=== PATIENT | male | born 1965 | race Caucasian/White ===

== ENCOUNTER 2021-12-27 12:39 | Inpatient (IN) ==
[2021-12-27 13:24] LABS: Basophils # (auto) 0.02 K/uL (0-0.2); Basophils % (auto) 0.1 %; Eosinophils # (auto) 0.01 K/uL (0-0.50); Eosinophils % (auto) 0.1 %; Hematocrit (blood only) 32.6 % (40.1-51.0); Hemoglobin 11.5 g/dl (14.0-18.0); Immature Granulocytes % (auto) 0.7 %; Lymphocytes # (auto) 0.68 K/uL (1.2-3.4); Lymphocytes % (auto) 4.5 %; Mean Corpuscular Hemoglobin 30.3 pg (25.0-34.0); Mean Corpuscular Hgb Conc 35.3 g/dL (32.0-36.0); Mean Platelet Volume 9.4 fL (9.4-12.4); Monocytes # (auto) 1.72 K/uL (0.24-0.82); Monocytes % (auto) 11.4 %; Neutrophils # (auto) 12.51 K/uL (1.4-6.5); Neutrophils % (auto) 83.2 %; Platelet Count 471 K/uL (130-400); RDW Coefficient of Variation 14.7 % (11.5-14.5); Red Blood Count 3.79 M/uL (4.63-6.08); White Blood Count 15.04 K/ul (4.8-10.8)
[2021-12-27 13:26] LABS: Appearance Urine Turbid (Clear); Bacteria Urine Automated 1+ (Negative); Bilirubin Urine Negative (Negative); Blood Urine 2+ (Negative); Color Urine Yellow; Glucose Urine UA Negative (Negative); Ketones Urine Negative (Negative); Leukocyte Esterase Urine 3+ (Negative); Nitrite Urine Negative (Negative); Protein Urine 2+ (Negative); Specific Gravity Urine 1.014 (1.000-1.030); Urobilinogen Urine Negative (Negative); WBC Urine Automated >30 /hpf (0-5)
--- NOTE | 2021-12-27 13:32 | XRay Report ---
XR chest 1V portable HISTORY: Sepsis COMPARISON: None. FINDINGS: The cardiac silhouette is borderline enlarged. The lungs are clear. No pleural effusions. N o pneumothorax. No evidence for pulmonary edema. IMPRESSION: Borderline cardiomegaly. Otherwise, no acute process within the chest. ACT 112: Negative or not required by law. Electronically signed by: Yovani Webster M.D. 12/27/2021 1:31 PM
[2021-12-27 13:34] LABS: RBC Urine Automated 0-4 /hpf (0-4)
[2021-12-27 13:34] LABS: INR 1.4 (0.9-1.1); Partial Thromboplastin Ratio 1.2; Partial Thromboplastin Time 31.9 Seconds (21.0-31.0); Prothrombin Time 14.5 Seconds (9.0-12.0)
[2021-12-27] MEDS ORDERED: ACETAMINOPHEN 1,000 MG/100 ML VIAL IV STA (13:36)
[2021-12-27] MEDS ORDERED: KETOROLAC TROMETHAMINE 15 MG/ML VIAL IV STA (13:36)
[2021-12-27] MEDS ORDERED: cefTRIAXone SODIUM 2,000 MG/70 ML BAG IV STA (13:36)
[2021-12-27] MEDS ORDERED: SODIUM CHLORIDE 0.9% 1000ML 2,000 ML IV ONE (13:36)
[2021-12-27 13:58] LABS: Albumin Globulin Ratio 1.1 (0.9-2); BUN Creatinine Ratio 9.8 (10-20); Bilirubin,Total 0.4 mg/dl (0.2-1.0); Calcium 8.1 mg/dl (8.5-10.1); Est GFR (African American) 68.4 ml/min; Globulin 2.8 gm/dl (2.5-4.0); Magnesium 1.5 mg/dl (1.7-2.4); Potassium 3.9 mmol/L (3.5-5.1); Total Protein 5.8 gm/dl (6.0-8.3)
[2021-12-27 13:59] LABS: Influenza A virus by PCR Negative (Neg); Influenza B virus by PCR Negative (Neg); RSV by PCR Negative (Neg); SARS CoV2 RNA(COVID-19)Cepheid NEGATIVE (Negative)
[2021-12-27 14:05] LABS: Procalcitonin 1.37 ng/ml (0-0.5)
[2021-12-27 14:17] LABS: Troponin I High Sensitivity 57.7 pg/ml (0-20)
--- NOTE | 2021-12-27 14:40 | Electrocardiogram Report ---
Test Reason : Blood Pressure : / mmHG Vent. Rate : 105 BPM Atrial Rate : 105 BPM P-R Int : 134 ms QRS Dur : 072 ms QT Int : 322 ms P-R-T Axes : 042 012 193 degrees QTc Int : 425 ms Sinus tachycardia Minimal voltage criteria for LVH, may be normal variant T wave abnormality, consider lateral ischemia Abnormal ECG No previous ECGs available Confirmed by Richmond Garza ([id number]) on 12/27/2021 2:40:51 PM Referred By: Confirmed By:Richmond Garza
[2021-12-27 14:55] LABS: Lyme Ab IgG w/WB Rflx Negative (Negative); Lyme Ab IgM w/WB Rflx Negative (Negative)
[2021-12-27] MEDS ORDERED: OPTIRAY 320 500ml IV ONE (14:55)
--- NOTE | 2021-12-27 15:23 | CT Scan Report ---
CT ANGIOGRAM OF THE CHEST; CT SCAN OF THE ABDOMEN AND PELVIS WITH IV CONTRAST CLINICAL HISTORY: Right flank pain. Atypical chest pain. Elevated troponin. Fever. COMPARISON STUDY: Chest x-ray dated 12/27/2021. TECHNIQUE: Following the IV administration of 111 of Optiray 320, CT angiogram of the chest is perfor med from the upper abdomen to the thoracic inlet utilizing the pulmonary embolus protocol. Images are reviewed in the axial, sagittal, coronal planes. 3-D MIPS images are created and assessed. Subsequen tly, CT scan of the abdomen and pelvis was performed from the lung bases to the proximal femora. Imag es are reviewed in the axial, sagittal, and coronal planes. IV contrast was administered without comp lication. A dose lowering technique was utilized adhering to the principles of ALARA. CT DOSE: 825.28 mGy.cm FINDINGS: CHEST: Thyroid: Imaged portions of the thyroid gland are normal in size and attenuation. Thoracic aorta: There is atherosclerotic calcification of the thoracic aorta, which is normal in umm alonzo and demonstrates standard 3-vessel arch anatomy. No dissection is seen. Pulmonary vasculature: The pulmonary trunk is normal in caliber. There are no filling defects identif ied in the main, lobar, or proximal segmental pulmonary arteries to indicate pulmonary embolus. Evalu ation of the segmental and subsegmental branches is degraded by motion artifact, especially in the le ft upper lobe. Heart: The heart is mildly enlarged and without pericardial effusion. The coronary arteries are dense ly calcified. Lungs and pleural spaces: Evaluation of the lung parenchyma is modestly degraded by motion artifact. No airspace consolidation or pleural effusion is identified. There is a 9 mm pulmonary nodule in the superior segment of the left lower lobe seen on image #231. The trachea and central airways are clear . Mediastinum: There is no mediastinal lymphadenopathy. Tashia: Clear. Axillae: There is no axillary lymphadenopathy. Bony thorax: No lytic or blastic lesions are identified. Advanced arthritic change is seen in the sarah ulders. ABDOMEN AND PELVIS: Liver: The contrast-enhanced liver is enlarged and heterogeneous, measuring 20 cm in craniocaudal denise gth. There is no intrahepatic biliary ductal dilatation. The hepatic veins and portal veins are paten t. Gallbladder: Unremarkable. Spleen: The spleen is mildly enlarged, measuring 13.5 cm in length. Pancreas: Unremarkable. Adrenal glands: Unremarkable. Kidneys: The contrast enhanced kidneys appear mildly enlarged and edematous. There is no hydronephros is. Cortical enhancement is heterogeneous and there is bilateral perinephric stranding. Bilateral non obstructing renal calculi measuring up to 6 mm. Abdominal vasculature: The abdominal aorta is normal in course and caliber noting mild to moderate at herosclerotic calcification. Stomach and bowel: There is a small to moderate hiatal hernia. No bowel obstruction is seen. Question mild wall thickening of the left colon with surrounding infiltration. The appendix is not visualize d. Peritoneum: There is trace free fluid in the pelvis. No intraperitoneal free air is seen. There is a fat-containing umbilical hernia. Lymphadenopathy: None. Pelvic viscera: Evaluation of the pelvis is degraded by's regarding artifact from orthopedic hardware in the left hip. The prostate gland is mildly enlarged and heterogeneous. The bladder is distended. The wall is thickened/trabeculated indicating chronic outlet obstruction. There is a fat-containing l eft inguinal hernia. Skeletal structures: There is mild lumbosacral spondylosis. No lytic or blastic lesions are seen. Int ertrochanteric and intramedullary nails are seen in the left proximal femur. Soft tissues: There is mild body wall edema. IMPRESSION: 1. There is no evidence of pulmonary embolus in the main, lobar, or proximal segmental pulmonary ysabel marie. Evaluation of the peripheral branches is degraded by motion artifact. 2. There is no airspace consolidation typical for pneumonia or pleural effusion. 3. Cardiomegaly with coronary artery calcifications. 4. There is an indeterminate 9 mm left lower lobe pulmonary nodule. This should be followed as per th e Fleischner criteria below. 5. Mild hepatosplenomegaly. 6. There is diffuse mesenteric edema and trace free fluid in the pelvis. 7. The kidneys appear mildly enlarged and edematous. There is heterogeneous cortical enhancement and nonspecific bilateral perinephric stranding. Correlate with clinical findings, urinalysis, and renal function studies. 8. Bilateral nephrolithiasis. 9. Question wall thickening with surrounding infiltration involving the left colon/rectum. Correlate clinically for evidence of a nonspecific proctocolitis. 10. Significant bladder distention with evidence of chronic outlet obstruction. Correlate with urinal ysis. 11. Mild body wall edema. 12. Additional findings as above. Please refer to below summary of Fleischner criteria recommendations for follow-up of incidental CT n odules Wilfrid Waite, Guidelines for management of small pulmonary nodules detected on CT scans: A kamilah almeida from the Fleischner [employer], Radiology 237: [phone].) SOLID NODULES Solitary nodule size: <6 mm * low risk patients: no follow-up needed * high risk patients: optional CT at 12 months Solitary nodule size: 6-8 mm * low risk patients: follow-up at 6-12 months, then consider further follow-up at 18-24 months * high risk patients: initial follow-up CT at 6-12 months and then at 18-24 months if no change Solitary nodule size: >8 mm * either low or high risk patients - consider follow-up CT at 3 months, and/or CT-PET, and/or biopsy Multiple nodules size: <6 mm * low risk patients: no routine follow-up * high risk patients: optional CT at 12 months Multiple nodules size: 6-8 mm * low risk patients: follow-up at 3-6 months, then consider further follow-up at 18-24 months * high risk patients: follow-up at 3-6 months, then at 18-24 months if no change Multiple nodules size: >8 mm * low risk patients: follow-up at 3-6 months, then consider further follow-up at 18-24 months * high risk patients: follow-up at 3-6 months, then at 18-24 months if no change Note: newly detected indeterminate nodule in persons 35 years of age or older. * low risk patients: minimal or absent history of smoking and/or other known risk factors * high risk patients: history of smoking or of other known risk factors (e.g. first degree relative with lung cancer, or exposure to asbestos, radon, uranium) * if a nodule up to 8 mm is partly solid or is ground glass further follow-up is required after 24 m onths to exclude possible slow growing adenocarcinoma (LURDES) SUBSOLID NODULES Solitary pure ground-glass nodule * nodule size <6 mm - no CT follow-up required * nodule size >=6 mm - follow-up CT at 6-12 months, then every 2 years until 5 years Solitary part-solid nodule * nodule size <6 mm - no CT follow-up required * nodule size >=6 mm - follow-up CT at 3-6 months. If unchanged, and solid component remains <6 mm, then annual follow-up for 5 years Multiple subsolid nodules * nodule size <6 mm - follow-up CT at 3-6 months, consider further follow-up at 2 and 4 years if sta ble * nodule size >=6 mm - follow-up CT at 3-6 months, subsequent management based on the most suspiciou s nodule(s) ACT 112: Negative or not required by law. Electronically signed by: Anish Joseph M.D. 12/27/2021 3:21 PM
[2021-12-27] MEDS ORDERED: LACTATED RINGER'S 1,000 ML IV ONE (15:34)
[2021-12-27] MEDS ORDERED: MAGNESIUM SULFATE / D5W 1 GM/100 ML BAG IV STA (15:35)
--- NOTE | 2021-12-27 15:35 | Emergency Department Note ---
Impression & Plan Sepsis, Pyelonephritis, Tylenol toxicity, Elevated INR, Transaminitis, Elevated troponin, Hypomagnesemia ED Provider Note NAME: BRITT WALSH AGE: 56 SEX: M ARRIVES VIA: Walk-In INFORMANT: Patient, ED PROVIDER(S): Donte Soliman MD CHIEF COMPLAINT: Fever x 2 weeks. PLAN: Disposition: Admit MEDICAL DECISION MAKING: The patient is a pleasant 56-year-old gentleman with a past medical history of asthma, self report of LUTS for past year, who presents to the emergency department for evaluation of ongoing fevers and generalized body aches for the past 2 weeks. He reports he has been unable to get into see his primary care doctor and due to worsening symptoms presents today. He denies any cough or congestion. He denies any headache. He does report feeling weak and lightheaded. He reports he has had a recent history of weak urine stream but denies any burning. He reports some intermittent pain in his right flank. He denies any diarrhea, constipation, or dysuria. He denies chest pain or shortness of breath. He denies any history of smoking. He denies any regular alcohol use. On arrival the patient is fatigued but relatively well-appearing in no acute distress, febrile to 39.4 with heart rate in the 100s and vital signs otherwise stable. His O2 saturations 95% on room air. He appears clinically dry. His exam is otherwise unremarkable. EKG without overt acute ischemia. Chest x-ray negative for acute cardiopulmonary process. WBC 15K with neutrophil predominance. H/H 11.5/32.6 without prior values for comparison. Platelets 470K, likely reactive. INR is 1.4 however the patient is not on warfarin. Chemistry without metabolic acidosis. Magnesium 1.5 with repletion initiated. LFTs mildly elevated with AST and ALT 61 and 111, respectively without prior values for comparison. Total bilirubin and alk phos are within normal limits. High-sensitivity troponin 57, nonspecific. Procalcitonin is elevated at 1.3. Patient's urinalysis is suspicious for infection with 3+ leukoesterase, WBCs and 1+ bacteria albeit with 10-20 epithelial cells. Lyme screen was negative. COVID-19, influenza and RSV PCR were negative. CT of the chest was performed given mildly elevated troponin this was negative for PE or focal infiltrates. CT of the abdomen pelvis demonstrates evidence of pyelonephritis. Additional note is made of mesenteric stranding that is nonspecific. Blood cultures were drawn and the patient was treated empirically with ceftriaxone. Upon reevaluation patient did report feeling significantly improved following initial treatment with IV fluid hydration (30 cc/kg), ceftriaxone after blood cultures (no risk factors for resistant organisms), Toradol and APAP (prior to labs resulting) and subsequent defervesced. Heart rate had improved to the 60s and blood pressure normalized. I did review his findings including his elevated liver function test and INR. While the patient does report having poor oral intake over the past 2 weeks he does wonder whether or not his liver function test could be related to his daily Tylenol use over the past 2 weeks where he reports taking Tylenol 4-5 times daily and taking 2 extra strength tablets at a time. He cannot say with any certainty how frequently he may have taken Tylenol 5 times but feels it was frequently and so there is the suspicion for possible accidental chronic overdose with the patient may have been taking 5 g daily. Case was reviewed with the [facility] Control [facility] and they did concur that chronic toxicity is suspected and to initiate NAC at this time. Case was discussed with Jack Valencia with [facility], who will evaluate the patient for admission. Triage Nursing notes reviewed and agree them. Prior medical records reviewed Vital Signs: reviewed and remarkable for fever and tachycardia. Differential diagnosis: Viral syndrome, otitis, pharyngitis, pneumonia, influenza, meningitis, urinary tract infection, sepsis, bacteremia, as well as other pathologies. ER treatment provided: See below. Diagnostics interpreted by me: ECG: Sinus tachycardia, 105 bpm, no ectopy, LVH, no overt ST elevation or depression, QTC 425, QRS 72. Cardiac Monitoring: An order for continuous cardiac monitoring was placed and demonstrated Sinus tachycardia, 105 bpm, no ectopy. Laboratory studies: See below Imaging studies: See below Consultation(s): Poison control center Case was discussed with Jack Valencia PAC with [facility], who will evaluate the patient for admission. HPI: The patient is a pleasant 56-year-old gentleman with a past medical history of asthma, self report of LUTS for past year, who presents to the emergency department for evaluation of ongoing fevers and generalized body aches for the past 2 weeks. He reports he has been unable to get into see his primary care doctor and due to worsening symptoms presents today. He denies any cough or congestion. He denies any headache. He does report feeling weak and lightheaded. He reports he has had a recent history of weak urine stream but denies any burning. He reports some intermittent pain in his right flank. He denies any diarrhea, constipation, or dysuria. He denies chest pain or shortness of breath. He denies any history of smoking. He denies any regular alcohol use. ROS: See above HPI for pertinent positives & negatives. A total of 10 systems reviewed and were otherwise negative. VITALS:See Below PHYSICAL EXAMINATION: GENERAL: Awake, alert, fatigued but well-appearing, in no distress HENT: Normocephalic, atraumatic. Oropharynx with dry mucous membranes and otherwise unremarkable. EYES: Normal conjunctiva. Sclera non-icteric. NECK: Supple. No nuchal rigidity. FROM. No JVD. RESPIRATORY: Clear to auscultation. CARDIAC: Tachycardic rate, normal rhythm. Extremities warm and well perfused. Pulses equal. ABDOMEN: Soft, non-distended. No tenderness to palpation. No rebound or guarding. No masses. RECTAL: Deferred. MUSCULOSKELETAL: Chest examination reveals no tenderness. The back is symmetrical on inspection without obvious abnormality. There is no CVA tenderness to palpation. No joint edema. LOWER EXTREMITIES: Calves are equal size bilaterally and non-tender. No edema. No discoloration. NEURO: Normal sensorium. No sensory or motor deficits noted. SKIN: No rash or jaundice noted. ED COURSE: Critical Care: I have personally spent greater than 95 minutes of critical care time in the direct management of this patient. This includes bedside care, interpretation of diagnostic studies, and testing, discussion with consultants, patient, and family members, and other required patient management activities. This 95 minutes is in excess of all separately billable procedures. Donte Soliman MD Past Med/Surg History Medical History Asthma Hypertension Surgical History Closed femur fracture with surgical repair History of tonsillectomy Family History Other Hypertension Stroke Social History Smoking Status: Never smoker Hx Alcohol Use: Yes Alcohol type: beer Alcohol Intake Frequency: 2-3 x/Week Alcohol Intake Frequency Comment: Has not had alcohol in over 2 weeks Hx Substance Use: No Preferred Language: Icelandic Feels Safe at Home: Yes Allergies Allergies Allergy/AdvReac Type Severity Reaction Status Date / Time pollen extracts Allergy Intermediate CAN Verified 12/27/21 15:59 TRIGGER ASTHMA ATTACK Home Meds Home Medications Medication Instructions Recorded Confirmed albuterol sulfate 90 mcg/actuation 2 puff inhalation DIRECTED PRN 12/27/21 12/27/21 aerosol inhaler Shortness Of Breath Or Wheezing aspirin 81 mg tablet,delayed 81 mg PO DAILY 12/27/21 12/27/21 release losartan 100 mg tablet 100 mg PO DAILY 12/27/21 12/27/21 montelukast 10 mg tablet 10 mg PO DAILY 12/27/21 12/27/21 Results & Data (ED) Vital Signs Vital Signs - 24 hr 12/27/21 12:45 12/27/21 12:49 12/27/21 12:49 Temperature 39.4 C H Temperature Source Oral Pulse Rate 107 H Pulse Rate [Apical] Pulse Rhythm [Apical] Respiratory Rate 18 16 Respiratory Effort / Characteristics Non-Labored Non-Labored Respiratory Depth Normal Normal Respiratory Pattern Regular Regular Blood Pressure 118/60 Blood Pressure [Left Arm] Blood Pressure Mean 79 Blood Pressure Mean [Left Arm] Blood Pressure Position [Left Arm] Pulse Oximetry 95 Oxygen Delivery Method Room Air Room Air Sepsis Recent Fever Within 48 Hours Yes Sepsis New/Unexplained Change in Mental Status No Sepsis Action Taken by Nursing Physician Notified 12/27/21 12:49 12/27/21 15:02 12/27/21 16:42 Temperature 36.7 C Temperature Source Oral Pulse Rate Pulse Rate [Apical] 84 72 Pulse Rhythm [Apical] Regular Regular Respiratory Rate 16 18 18 Respiratory Effort / Characteristics Non-Labored Non-Labored Respiratory Depth Normal Normal Respiratory Pattern Regular Blood Pressure Blood Pressure [Left Arm] 124/66 126/72 Blood Pressure Mean Blood Pressure Mean [Left Arm] 85 90 Blood Pressure Position [Left Arm] Lying Lying Pulse Oximetry 95 98 Oxygen Delivery Method Room Air Room Air Sepsis Recent Fever Within 48 Hours Sepsis New/Unexplained Change in Mental Status Sepsis Action Taken by Nursing 12/27/21 18:00 11/08/22 18:48 Temperature Temperature Source Pulse Rate 69 Pulse Rate [Apical] 68 Pulse Rhythm [Apical] Respiratory Rate 18 18 Respiratory Effort / Characteristics Non-Labored Respiratory Depth Normal Respiratory Pattern Regular Blood Pressure 129/78 Blood Pressure [Left Arm] Blood Pressure Mean Blood Pressure Mean [Left Arm] Blood Pressure Position [Left Arm] Pulse Oximetry 99 99 Oxygen Delivery Method Room Air Room Air Sepsis Recent Fever Within 48 Hours Sepsis New/Unexplained Change in Mental Status Sepsis Action Taken by Nursing Laboratory Data Result diagrams: 12/27/21 13:00 12/27/21 13:00 Lab Results 12/27/21 12/27/21 12/27/21 Range/Units 12:47 12:47 13:00 WBC 15.04 H (4.8-10.8) K/ul RBC 3.79 L (4.63-6.08) M/uL Hgb 11.5 L (14.0-18.0) g/dl Hct 32.6 L (40.1-51.0) % MCV 86.0 (80.0-100.0) fL MCH 30.3 (25.0-34.0) pg MCHC 35.3 (32.0-36.0) g/dL RDW Std Deviation 47.0 H (36.4-46.3) fL RDW Coeff of [place] 14.7 H (11.5-14.5) % Plt Count 471 H (130-400) K/uL MPV 9.4 (9.4-12.4) fL Immature Gran % (Auto) 0.7 % Neut % (Auto) 83.2 % Lymph % (Auto) 4.5 % Hayes % (Auto) 11.4 % Eos % (Auto) 0.1 % Baso % (Auto) 0.1 % Neut # (Auto) 12.51 H (1.4-6.5) K/uL Lymph # (Auto) 0.68 L (1.2-3.4) K/uL Hayes # (Auto) 1.72 H (0.24-0.82) K/uL Eos # (Auto) 0.01 (0-0.50) K/uL Baso # (Auto) 0.02 (0-0.2) K/uL Immature Gran # (Auto) 0.10 H (0.00-0.02) K/uL PT (9.0-12.0) Seconds INR (0.9-1.1) APTT (21.0-31.0) Seconds PTT Ratio Sodium (136-145) mmol/L Potassium (3.5-5.1) mmol/L Chloride (98-107) mmol/L Carbon Dioxide (21-32) mmol/L Anion Gap (3-11) BUN (6-23) mg/dl Creatinine (0.6-1.4) mg/dl Est Cr Clr Drug Dosing ml/min Est GFR ( Amer) ml/min Est GFR (Non-Af Amer) ml/min BUN/Creatinine Ratio (10-20) Glucose (70-99(Fasting)) mg/dl Calcium (8.5-10.1) mg/dl Magnesium (1.7-2.4) mg/dl Total Bilirubin (0.2-1.0) mg/dl AST (13-39) U/L ALT (7-52) U/L Alkaline Phosphatase (34-104) U/L Troponin I High Sens (0-20) pg/ml Total Protein (6.0-8.3) gm/dl Albumin (3.4-5.0) gm/dl Globulin (2.5-4.0) gm/dl Albumin/Globulin Ratio (0.9-2) Procalcitonin (0-0.5) ng/ml Urine Color Yellow Urine Appearance Turbid A (Clear) Urine pH 6.0 (4.5-7.5) Ur Specific [place] 1.014 (1.000-1.030) Urine Protein 2+ H (Negative) Urine Glucose (UA) Negative (Negative) Urine Ketones Negative (Negative) Urine Blood 2+ H (Negative) Urine Nitrite Negative (Negative) Urine Bilirubin Negative (Negative) Urine Urobilinogen Negative (Negative) Ur Leukocyte Esterase 3+ H (Negative) Urine WBC (Auto) >30 H (0-5) /hpf Urine RBC (Auto) 0-4 (0-4) /hpf U Hyaline Cast (Auto) 1-5 (0-5) /lpf U Epithel Cells (Auto) 10-20 H (0-5) /lpf Urine Bacteria (Auto) 1+ H (Negative) Lyme Disease IgG Ab (Negative) Lyme Disease IgM Ab (Negative) SARS-CoV-2 (PCR) NEGATIVE (Negative) Influenza Type A (PCR) Negative (Neg) Influenza Type B (PCR) Negative (Neg) RSV (RT-PCR) Negative (Neg) 12/27/21 12/27/21 12/27/21 Range/Units 13:00 13:00 13:00 WBC (4.8-10.8) K/ul RBC (4.63-6.08) M/uL Hgb (14.0-18.0) g/dl Hct (40.1-51.0) % MCV (80.0-100.0) fL MCH (25.0-34.0) pg MCHC (32.0-36.0) g/dL RDW Std Deviation (36.4-46.3) fL RDW Coeff of [place] (11.5-14.5) % Plt Count (130-400) K/uL MPV (9.4-12.4) fL Immature Gran % (Auto) % Neut % (Auto) % Lymph % (Auto) % Hayes % (Auto) % Eos % (Auto) % Baso % (Auto) % Neut # (Auto) (1.4-6.5) K/uL Lymph # (Auto) (1.2-3.4) K/uL Hayes # (Auto) (0.24-0.82) K/uL Eos # (Auto) (0-0.50) K/uL Baso # (Auto) (0-0.2) K/uL Immature Gran # (Auto) (0.00-0.02) K/uL PT 14.5 H (9.0-12.0) Seconds INR 1.4 H (0.9-1.1) APTT 31.9 H (21.0-31.0) Seconds PTT Ratio 1.2 Sodium 134 L (136-145) mmol/L Potassium 3.9 (3.5-5.1) mmol/L Chloride 100 (98-107) mmol/L Carbon Dioxide 27 (21-32) mmol/L Anion Gap 7 (3-11) BUN 13 (6-23) mg/dl Creatinine 1.32 (0.6-1.4) mg/dl Est Cr Clr Drug Dosing 57.0 ml/min Est GFR ( Amer) 68.4 ml/min Est GFR (Non-Af Amer) 59.0 ml/min BUN/Creatinine Ratio 9.8 L (10-20) Glucose 121 H (70-99(Fasting)) mg/dl Calcium 8.1 L (8.5-10.1) mg/dl Magnesium 1.5 L (1.7-2.4) mg/dl Total Bilirubin 0.4 (0.2-1.0) mg/dl AST 61 H (13-39) U/L ALT 111 H (7-52) U/L Alkaline Phosphatase 65 (34-104) U/L Troponin I High Sens 57.7 H* (0-20) pg/ml Total Protein 5.8 L (6.0-8.3) gm/dl Albumin 3.0 L (3.4-5.0) gm/dl Globulin 2.8 (2.5-4.0) gm/dl Albumin/Globulin Ratio 1.1 (0.9-2) Procalcitonin 1.37 H (0-0.5) ng/ml Urine Color Urine Appearance (Clear) Urine pH (4.5-7.5) Ur Specific [place] (1.000-1.030) Urine Protein (Negative) Urine Glucose (UA) (Negative) Urine Ketones (Negative) Urine Blood (Negative) Urine Nitrite (Negative) Urine Bilirubin (Negative) Urine Urobilinogen (Negative) Ur Leukocyte Esterase (Negative) Urine WBC (Auto) (0-5) /hpf Urine RBC (Auto) (0-4) /hpf U Hyaline Cast (Auto) (0-5) /lpf U Epithel Cells (Auto) (0-5) /lpf Urine Bacteria (Auto) (Negative) Lyme Disease IgG Ab Negative (Negative) Lyme Disease IgM Ab Negative (Negative) SARS-CoV-2 (PCR) (Negative) Influenza Type A (PCR) (Neg) Influenza Type B (PCR) (Neg) RSV (RT-PCR) (Neg) 12/27/21 Range/Units 13:00 WBC (4.8-10.8) K/ul RBC (4.63-6.08) M/uL Hgb (14.0-18.0) g/dl Hct (40.1-51.0) % MCV (80.0-100.0) fL MCH (25.0-34.0) pg MCHC (32.0-36.0) g/dL RDW Std Deviation (36.4-46.3) fL RDW Coeff of [place] (11.5-14.5) % Plt Count (130-400) K/uL MPV (9.4-12.4) fL Immature Gran % (Auto) % Neut % (Auto) % Lymph % (Auto) % Hayes % (Auto) % Eos % (Auto) % Baso % (Auto) % Neut # (Auto) (1.4-6.5) K/uL Lymph # (Auto) (1.2-3.4) K/uL Hayes # (Auto) (0.24-0.82) K/uL Eos # (Auto) (0-0.50) K/uL Baso # (Auto) (0-0.2) K/uL Immature Gran # (Auto) (0.00-0.02) K/uL PT (9.0-12.0) Seconds INR (0.9-1.1) APTT (21.0-31.0) Seconds PTT Ratio Sodium (136-145) mmol/L Potassium (3.5-5.1) mmol/L Chloride (98-107) mmol/L Carbon Dioxide (21-32) mmol/L Anion Gap (3-11) BUN (6-23) mg/dl Creatinine (0.6-1.4) mg/dl Est Cr Clr Drug Dosing ml/min Est GFR ( Amer) ml/min Est GFR (Non-Af Amer) ml/min BUN/Creatinine Ratio (10-20) Glucose (70-99(Fasting)) mg/dl Calcium (8.5-10.1) mg/dl Magnesium (1.7-2.4) mg/dl Total Bilirubin (0.2-1.0) mg/dl AST (13-39) U/L ALT (7-52) U/L Alkaline Phosphatase (34-104) U/L Troponin I High Sens (0-20) pg/ml Total Protein (6.0-8.3) gm/dl Albumin (3.4-5.0) gm/dl Globulin (2.5-4.0) gm/dl Albumin/Globulin Ratio (0.9-2) Procalcitonin (0-0.5) ng/ml Urine Color Urine Appearance (Clear) Urine pH (4.5-7.5) Ur Specific [place] (1.000-1.030) Urine Protein (Negative) Urine Glucose (UA) (Negative) Urine Ketones (Negative) Urine Blood (Negative) Urine Nitrite (Negative) Urine Bilirubin (Negative) Urine Urobilinogen (Negative) Ur Leukocyte Esterase (Negative) Urine WBC (Auto) (0-5) /hpf Urine RBC (Auto) (0-4) /hpf U Hyaline Cast (Auto) (0-5) /lpf U Epithel Cells (Auto) (0-5) /lpf Urine Bacteria (Auto) (Negative) Lyme Disease IgG Ab Cancelled (Negative) Lyme Disease IgM Ab Cancelled (Negative) SARS-CoV-2 (PCR) (Negative) Influenza Type A (PCR) (Neg) Influenza Type B (PCR) (Neg) RSV (RT-PCR) (Neg) Administered Medications Discontinued Medications Sodium Chloride (Nss 1000ml) 2,000 mls @ 999 mls/hr IV .Q2H1M ONE Stop: 12/27/21 15:36 Last Infusion: 12/27/21 16:29 Dose: 0 mls/hr Documented By: Admin: 12/27/21 14:08 Dose: 999 mls/hr Documented By: TNB Acetaminophen (Ofirmev) 1,000 mg in 100 mls @ 400 mls/hr IV NOW STA Stop: 12/27/21 13:50 Last Infusion: 12/27/21 14:29 Dose: 0 mls/hr Documented By: Admin: 12/27/21 14:09 Dose: 400 mls/hr Documented By: TNB Ceftriaxone Sodium (Rocephin) 2,000 mg in 70 mls @ 140 mls/hr IV NOW STA Stop: 12/27/21 14:05 Last Infusion: 12/27/21 14:59 Dose: 0 mls/hr Documented By: Admin: 12/27/21 14:26 Dose: 140 mls/hr Documented By: TNB Magnesium Sulfate/Dextrose (Magnesium Sulfate / D5w) 1 gm in 100 mls @ 100 mls/hr IV NOW STA Stop: 12/27/21 16:34 Last Infusion: 12/27/21 17:29 Dose: 0 mls/hr Documented By: Admin: 12/27/21 16:20 Dose: 100 mls/hr Documented By: ALONSO Lactated Ringer's (Lr) 1,000 mls @ 999 mls/hr IV .Q1H1M ONE Stop: 12/27/21 16:34 Last Infusion: 12/27/21 17:34 Dose: 0 mls/hr Documented By: Admin: 12/27/21 16:27 Dose: 999 mls/hr Documented By: ALONSO Acetylcysteine 11,630 mg/ (Dextrose) 258.15 mls @ 200 mls/hr IV ONCE ONE Stop: 12/27/21 18:08 Last Admin: 12/27/21 17:55 Dose: 200 mls/hr Documented By: Ioversol (Optiray 320 500ml) 111 ml IV ONCE ONE Stop: 12/27/21 14:56 Last Admin: 12/27/21 14:55 Dose: 111 ml Documented By: SERGEY Ketorolac Tromethamine (Ketorolac Tromethamine 15 Mg/Ml Vial) 15 mg IV NOW STA Stop: 12/27/21 13:37 Last Admin: 12/27/21 14:09 Dose: 15 mg Documented By: TAMEKA Imaging Data Radiologist's Impression: Chest X-Ray 12/27/21 12:49 XR chest 1V portable HISTORY: Sepsis COMPARISON: None. FINDINGS: The cardiac silhouette is borderline enlarged. The lungs are clear. No pleural effusions. No pneumothorax. No evidence for pulmonary edema. IMPRESSION: Borderline cardiomegaly. Otherwise, no acute process within the chest. ACT 112: Negative or not required by law. Electronically signed by: Yovani Webster M.D. 12/27/2021 1:31 PM Abdomen/Pelvis CT 12/27/21 13:36 CT ANGIOGRAM OF THE CHEST; CT SCAN OF THE ABDOMEN AND PELVIS WITH IV CONTRAST CLINICAL HISTORY: Right flank pain. Atypical chest pain. Elevated troponin. Fever. COMPARISON STUDY: Chest x-ray dated 12/27/2021. TECHNIQUE: Following the IV administration of 111 of Optiray 320, CT angiogram of the chest is performed from the upper abdomen to the thoracic inlet utilizing the pulmonary embolus protocol. Images are reviewed in the axial, sagittal, coronal planes. 3-D MIPS images are created and assessed. Subsequently, CT scan of the abdomen and pelvis was performed from the lung bases to the proximal femora. Images are reviewed in the axial, sagittal, and coronal planes. IV contrast was administered without complication. A dose lowering technique was utilized adhering to the principles of ALARA. CT DOSE: 825.28 mGy.cm FINDINGS: CHEST: Thyroid: Imaged portions of the thyroid gland are normal in size and attenuation. Thoracic aorta: There is atherosclerotic calcification of the thoracic aorta, which is normal in caliber and demonstrates standard 3-vessel arch anatomy. No dissection is seen. Pulmonary vasculature: The pulmonary trunk is normal in caliber. There are no filling defects identified in the main, lobar, or proximal segmental pulmonary arteries to indicate pulmonary embolus. Evaluation of the segmental and subsegmental branches is degraded by motion artifact, especially in the left upper lobe. Heart: The heart is mildly enlarged and without pericardial effusion. The coronary arteries are densely calcified. Lungs and pleural spaces: Evaluation of the lung parenchyma is modestly degraded by motion artifact. No airspace consolidation or pleural effusion is identified. There is a 9 mm pulmonary nodule in the superior segment of the left lower lobe seen on image #231. The trachea and central airways are clear. Mediastinum: There is no mediastinal lymphadenopathy. Tashia: Clear. Axillae: There is no axillary lymphadenopathy. Bony thorax: No lytic or blastic lesions are identified. Advanced arthritic change is seen in the shoulders. ABDOMEN AND PELVIS: Liver: The contrast-enhanced liver is enlarged and heterogeneous, measuring 20 cm in craniocaudal length. There is no intrahepatic biliary ductal dilatation. The hepatic veins and portal veins are patent. Gallbladder: Unremarkable. Spleen: The spleen is mildly enlarged, measuring 13.5 cm in length. Pancreas: Unremarkable. Adrenal glands: Unremarkable. Kidneys: The contrast enhanced kidneys appear mildly enlarged and edematous. There is no hydronephrosis. Cortical enhancement is heterogeneous and there is bilateral perinephric stranding. Bilateral nonobstructing renal calculi measuring up to 6 mm. Abdominal vasculature: The abdominal aorta is normal in course and caliber noti ng mild to moderate atherosclerotic calcification. Stomach and bowel: There is a small to moderate hiatal hernia. No bowel obstruction is seen. Question mild wall thickening of the left colon with surrounding infiltration. The appendix is not visualized. Peritoneum: There is trace free fluid in the pelvis. No intraperitoneal free air is seen. There is a fat-containing umbilical hernia. Lymphadenopathy: None. Pelvic viscera: Evaluation of the pelvis is degraded by's regarding artifact from orthopedic hardware in the left hip. The prostate gland is mildly enlarged and heterogeneous. The bladder is distended. The wall is thickened/trabeculated indicating chronic outlet obstruction. There is a fat-containing left inguinal hernia. Skeletal structures: There is mild lumbosacral spondylosis. No lytic or blastic lesions are seen. Intertrochanteric and intramedullary nails are seen in the left proximal femur. Soft tissues: There is mild body wall edema. IMPRESSION: 1. There is no evidence of pulmonary embolus in the main, lobar, or proximal segmental pulmonary arteries. Evaluation of the peripheral branches is degraded by motion artifact. 2. There is no airspace consolidation typical for pneumonia or pleural effusion. 3. Cardiomegaly with coronary artery calcifications. 4. There is an indeterminate 9 mm left lower lobe pulmonary nodule. This should be followed as per the Fleischner criteria below. 5. Mild hepatosplenomegaly. 6. There is diffuse mesenteric edema and trace free fluid in the pelvis. 7. The kidneys appear mildly enlarged and edematous. There is heterogeneous cortical enhancement and nonspecific bilateral perinephric stranding. Correlate with clinical findings, urinalysis, and renal function studies. 8. Bilateral nephrolithiasis. 9. Question wall thickening with surrounding infiltration involving the left colon/rectum. Correlate clinically for evidence of a nonspecific proctocolitis. 10. Significant bladder distention with evidence of chronic outlet obstruction. Correlate with urinalysis. 11. Mild body wall edema. 12. Additional findings as above. Please refer to below summary of Fleischner criteria recommendations for follow- up of incidental CT nodules (Leonardo Waite, Guidelines for management of small pulmonary nodules detected on CT scans: A statement from the Fleischner Society , Radiology 237: [id number].) SOLID NODULES Solitary nodule size: <6 mm * low risk patients: no follow-up needed * high risk patients: optional CT at 12 months Solitary nodule size: 6-8 mm * low risk patients: follow-up at 6-12 months, then consider further follow-up at 18-24 months * high risk patients: initial follow-up CT at 6-12 months and then at 18-24 months if no change Solitary nodule size: >8 mm * either low or high risk patients - consider follow-up CT at 3 months, and/or CT-PET, and/or biopsy Multiple nodules size: <6 mm * low risk patients: no routine follow-up * high risk patients: optional CT at 12 months Multiple nodules size: 6-8 mm * low risk patients: follow-up at 3-6 months, then consider further follow-up at 18-24 months * high risk patients: follow-up at 3-6 months, then at 18-24 months if no change Multiple nodules size: >8 mm * low risk patients: follow-up at 3-6 months, then consider further follow-up at 18-24 months * high risk patients: follow-up at 3-6 months, then at 18-24 months if no change Note: newly detected indeterminate nodule in persons 35 years of age or older. * low risk patients: minimal or absent history of smoking and/or other known risk factors * high risk patients: history of smoking or of other known risk factors (e.g. first degree relative with lung cancer, or exposure to asbestos, radon, uranium) * if a nodule up to 8 mm is partly solid or is ground glass further follow-up is required after 24 months to exclude possible slow growing adenocarcinoma (LURDES) SUBSOLID NODULES Solitary pure ground-glass nodule * nodule size <6 mm - no CT follow-up required * nodule size >=6 mm - follow-up CT at 6-12 months, then every 2 years until 5 years Solitary part-solid nodule * nodule size <6 mm - no CT follow-up required * nodule size >=6 mm - follow-up CT at 3-6 months. If unchanged, and solid component remains <6 mm, then annual follow-up for 5 years Multiple subsolid nodules * nodule size <6 mm - follow-up CT at 3-6 months, consider further follow-up at 2 and 4 years if stable * nodule size >=6 mm - follow-up CT at 3-6 months, subsequent management based on the most suspicious nodule(s) ACT 112: Negative or not required by law. Electronically signed by: Anish Joseph M.D. 12/27/2021 3:21 PM Chest CTA 12/27/21 14:20 CT ANGIOGRAM OF THE CHEST; CT SCAN OF THE ABDOMEN AND PELVIS WITH IV CONTRAST CLINICAL HISTORY: Right flank pain. Atypical chest pain. Elevated troponin. Fever. COMPARISON STUDY: Chest x-ray dated 12/27/2021. TECHNIQUE: Following the IV administration of 111 of Optiray 320, CT angiogram of the chest is performed from the upper abdomen to the thoracic inlet utilizing the pulmonary embolus protocol. Images are reviewed in the axial, sagittal, pino nal planes. 3-D MIPS images are created and assessed. Subsequently, CT scan of the abdomen and pelvis was performed from the lung bases to the proximal femora. Images are reviewed in the axial, sagittal, and coronal planes. IV contrast was administered without complication. A dose lowering technique was utilized adhering to the principles of ALARA. CT DOSE: 825.28 mGy.cm FINDINGS: CHEST: Thyroid: Imaged portions of the thyroid gland are normal in size and attenuation. Thoracic aorta: There is atherosclerotic calcification of the thoracic aorta, which is normal in caliber and demonstrates standard 3-vessel arch anatomy. No dissection is seen. Pulmonary vasculature: The pulmonary trunk is normal in caliber. There are no filling defects identified in the main, lobar, or proximal segmental pulmonary arteries to indicate pulmonary embolus. Evaluation of the segmental and subsegmental branches is degraded by motion artifact, especially in the left upper lobe. Heart: The heart is mildly enlarged and without pericardial effusion. The coronary arteries are densely calcified. Lungs and pleural spaces: Evaluation of the lung parenchyma is modestly degraded by motion artifact. No airspace consolidation or pleural effusion is identified. There is a 9 mm pulmonary nodule in the superior segment of the left lower lobe seen on image #231. The trachea and central airways are clear. Mediastinum: There is no mediastinal lymphadenopathy. Tashia: Clear. Axillae: There is no axillary lymphadenopathy. Bony thorax: No lytic or blastic lesions are identified. Advanced arthritic change is seen in the shoulders. ABDOMEN AND PELVIS: Liver: The contrast-enhanced liver is enlarged and heterogeneous, measuring 20 cm in craniocaudal length. There is no intrahepatic biliary ductal dilatation. The hepatic veins and portal veins are patent. Gallbladder: Unremarkable. Spleen: The spleen is mildly enlarged, measuring 13.5 cm in length. Pancreas: Unremarkable. Adrenal glands: Unremarkable. Kidneys: The contrast enhanced kidneys appear mildly enlarged and edematous. There is no hydronephrosis. Cortical enhancement is heterogeneous and there is bilateral perinephric stranding. Bilateral nonobstructing renal calculi measuring up to 6 mm. Abdominal vasculature: The abdominal aorta is normal in course and caliber noting mild to moderate atherosclerotic calcification. Stomach and bowel: There is a small to moderate hiatal hernia. No bowel obs truction is seen. Question mild wall thickening of the left colon with surrounding infiltration. The appendix is not visualized. Peritoneum: There is trace free fluid in the pelvis. No intraperitoneal free air is seen. There is a fat-containing umbilical hernia. Lymphadenopathy: None. Pelvic viscera: Evaluation of the pelvis is degraded by's regarding artifact from orthopedic hardware in the left hip. The prostate gland is mildly enlarged and heterogeneous. The bladder is distended. The wall is thickened/trabeculated indicating chronic outlet obstruction. There is a fat-containing left inguinal hernia. Skeletal structures: There is mild lumbosacral spondylosis. No lytic or blastic lesions are seen. Intertrochanteric and intramedullary nails are seen in the left proximal femur. Soft tissues: There is mild body wall edema. IMPRESSION: 1. There is no evidence of pulmonary embolus in the main, lobar, or proximal segmental pulmonary arteries. Evaluation of the peripheral branches is degraded by motion artifact. 2. There is no airspace consolidation typical for pneumonia or pleural effusion. 3. Cardiomegaly with coronary artery calcifications. 4. There is an indeterminate 9 mm left lower lobe pulmonary nodule. This should be followed as per the Fleischner criteria below. 5. Mild hepatosplenomegaly. 6. There is diffuse mesenteric edema and trace free fluid in the pelvis. 7. The kidneys appear mildly enlarged and edematous. There is heterogeneous cortical enhancement and nonspecific bilateral perinephric stranding. Correlate with clinical findings, urinalysis, and renal function studies. 8. Bilateral nephrolithiasis. 9. Question wall thickening with surrounding infiltration involving the left colon/rectum. Correlate clinically for evidence of a nonspecific proctocolitis. 10. Significant bladder distention with evidence of chronic outlet obstruction. Correlate with urinalysis. 11. Mild body wall edema. 12. Additional findings as above. Please refer to below summary of Fleischner criteria recommendations for follow- up of incidental CT nodules (Leonardo Waite, Guidelines for management of small pulmonary nodules detected on CT scans: A statement from the Fleischner Society, Radiology 237: [id number].) SOLID NODULES Solitary nodule size: <6 mm * low risk patients: no follow-up needed * high risk patients: optional CT at 12 months Solitary nodule size: 6-8 mm * low risk patients: follow-up at 6-12 months, then consider further follow-up at 18-24 months * high risk patients: initial follow-up CT at 6-12 months and then at 18-24 months if no change Solitary nodule size: >8 mm * either low or high risk patients - consider follow-up CT at 3 months, and/or CT-PET, and/or biopsy Multiple nodules size: <6 mm * low risk patients: no routine follow-up * high risk patients: optional CT at 12 months Multiple nodules size: 6-8 mm * low risk patients: follow-up at 3-6 months, then consider further follow-up at 18-24 months * high risk patients: follow-up at 3-6 months, then at 18-24 months if no change Multiple nodules size: >8 mm * low risk patients: follow-up at 3-6 months, then consider further follow-up at 18-24 months * high risk patients: follow-up at 3-6 months, then at 18-24 months if no change Note: newly detected indeterminate nodule in persons 35 years of age or older. * low risk patients: minimal or absent history of smoking and/or other known risk factors * high risk patients: history of smoking or of other known risk factors (e.g. first degree relative with lung cancer, or exposure to asbestos, radon, uranium) * if a nodule up to 8 mm is partly solid or is ground glass further follow-up i s required after 24 months to exclude possible slow growing adenocarcinoma (LURDES) SUBSOLID NODULES Solitary pure ground-glass nodule * nodule size <6 mm - no CT follow-up required * nodule size >=6 mm - follow-up CT at 6-12 months, then every 2 years until 5 years Solitary part-solid nodule * nodule size <6 mm - no CT follow-up required * nodule size >=6 mm - follow-up CT at 3-6 months. If unchanged, and solid component remains <6 mm, then annual follow-up for 5 years Multiple subsolid nodules * nodule size <6 mm - follow-up CT at 3-6 months, consider further follow-up at 2 and 4 years if stable * nodule size >=6 mm - follow-up CT at 3-6 months, subsequent management based on the most suspicious nodule(s) ACT 112: Negative or not required by law. Electronically signed by: Anish Joseph M.D. 12/27/2021 3:21 PM Discharge Plan Visit Data Chief Complaint: Flu Like Symptoms Stated Complaint: FEVER, CHILLS, SHAKES, TIRED ED Provider: Donte Soliman Discharge Problem: Sepsis, Pyelonephritis, Tylenol toxicity, Elevated INR, Transaminitis, Elevated troponin, Hypomagnesemia Patient Disposition: Admitted As Inpatient Discharge Instructions Interventions: ED Discharge Assessment Last Done: 12/27/21 18:48 Forms Stand Alone Forms: [facility] [employer] Prescriptions Prescriptions: No Action aspirin 81 mg Tablet,Delayed Release (Dr/Ec) 81 mg PO DAILY montelukast 10 mg tablet 10 mg PO DAILY albuterol sulfate 90 mcg/actuation HFA aerosol inhaler 2 puff INHALATION DIRECTED PRN (Reason: Shortness Of Breath Or Wheezing) losartan 100 mg tablet 100 mg PO DAILY Referrals Referrals: PCP,NO [Primary Care Provider] -
[2021-12-27] MEDS ORDERED: DEXTROSE 5% IV ONE ×2 (16:51→17:51)
[2021-12-27] MEDS ORDERED: ACETYLCYSTEINE IV ONE ×2 (16:51→17:51)
[2021-12-27] MEDS ORDERED: AcetylCYSTEINE IV 21 HR REGIMEN (>40KG) IV STA (16:51)
--- NOTE | 2021-12-27 17:50 | History & Physical Report ---
Date of Service December 27, 2021 Assessment & Plan (1) Pyelonephritis: (2) Hypertension: (3) Asthma: (4) Tylenol toxicity: Plan This is a 56yo M with a PMH of asthma, HTN, history of kidney stones who presented with the ED for ongoing fevers and generalized body aches for the past 2 weeks found to have pyelonephritis. Pyelonephritis T 39.4, reporting subjective fever intermittently for 2 weeks. HR 107, WBC 15k, procal 1.[address] abd/pelvis with kidneys appear mildly enlarged and edematous. There is heterogeneous cortical enhancement and nonspecific bilateral perinephric stranding. Significant bladder distention with e/o chronic outlet obstruction UA abnormal with urine culture pending Continue rocephin, starting flomax given likelihood of BPH, continue gentle IV fluids Elevated troponin No chest pain, ECG with sinus tachycardia, 105 bpm, LVH, no overt ST elevation or depression (no baseline ECG), HS troponin 57.7 CT abd/pelvis with cardiomegaly with coronary artery calcifications Trend troponin, monitor on telemetry, consider 2D echo Tylenol toxicity Has been taking 4,000-5,000mg tylenol per day for over 1 week in setting of fever. Education on appropriate dosing No abd TTP, INR 1.4, AST 61, ALT 111, albumin 3 Dr. Soliman discussed with poison control who recommended NAC protocol Trend CMP. Avoid additional Tylenol Hypomagnesemia Initial Mg 1.5. Replaced. Repeat labs in AM Diarrhea Multiple episodes a few daily ago CT abd/pelvis with question wall thickening with surrounding infiltration involving the left colon/rectum. Correlate clinically for evidence of a nonspecific proctocolitis. Consider stool studies if diarrhea persists Hypertension Has not taken losartan for over 1 week and BP currently normotensive. Hold losartan given possible septic picture Asthma Stable. Continue Singulair, albuterol inh PRN Pulmonary nodule CTA chest with incidental finding of 9 mm left lower lobe pulmonary nodule Per Fleischner criteria recommendations, consider follow up CT at 3 months DVT Ppx: SQ lovenox Code status: FULL PCP: Topher Desai PA-C ([facility]) Dispo: Admitted to PCU Patient seen in collaboration with Dr. Almeida. Please see addendum. History of Present Illness Chief Complaint: Flulike symptoms Primary Care Provider: NO PCP This is a 56yo M with a PMH of asthma, HTN, history of kidney stones who presented with the ED for ongoing fevers and generalized body aches for the past 2 weeks. Has had difficulty getting with primary care doctor and due to worsening urinary symptoms presented to the ER today. Reports weak urinary stream and frequent urination with incomplete emptying but no dysuria or hematuria. Intermittent right flank pain but none today. Dull headache and body aches as well. Has been taking 1000 mg of Tylenol 4-5 times per day for over a week. No chest pain, shortness of breath, nausea, vomiting, abdominal pain, back pain. Had a few bouts of diarrhea days ago that have since resolved. Has not taken losartan in over 1 week due to running out. Allergies Allergy/AdvReac Type Severity Reaction Status Date / Time pollen extracts Allergy Intermediate CAN Verified 12/27/21 15:59 TRIGGER ASTHMA ATTACK Home Medications Medication Instructions Recorded Confirmed Type albuterol sulfate 90 mcg/actuation 2 puff inhalation DIRECTED PRN 12/27/21 12/27/21 History aerosol inhaler Shortness Of Breath Or Wheezing aspirin 81 mg tablet,delayed 81 mg PO DAILY 12/27/21 12/27/21 History release losartan 100 mg tablet 100 mg PO DAILY 12/27/21 12/27/21 History montelukast 10 mg tablet 10 mg PO DAILY 12/27/21 12/27/21 History Past Med/Surg History Medical History Asthma Hypertension Surgical History Closed femur fracture with surgical repair History of tonsillectomy Family History Other Hypertension Stroke Social History Smoking Status: Never smoker Hx Alcohol Use: Yes Alcohol type: beer Alcohol Intake Frequency: 2-3 x/Week Alcohol Intake Frequency Comment: Has not had alcohol in over 2 weeks Hx Substance Use: No Preferred Language: Turkish Feels Safe at Home: Yes Review of Systems Review of Systems: At least ten systems reviewed and negative except as noted in the HPI. Physical Exam Physical Exam: General Appearance: WD/WN, vitals as above, NAD, sitting in bedside chair, pleasant, conversing easily Head: normocephalic, atraumatic Eyes: normal inspection, PERRL, conjunctivae normal, anicteric sclerae ENT: external ear and nose normal, mucous membranes of oropharynx dry Neck: normal visual inspection, trachea midline, no thyromegaly Respiratory: normal respiratory effort, lungs clear to auscultation, no wheeze, rales, rhonchi. No accessory muscle use Cardiovascular: regular rate, rhythm, no murmur, normal peripheral pulses, no BLE edema. Vessels: no JVD Chest: normal inspection of chest Abdomen/GI: normal bowel sounds, soft, nontender, no hepatosplenomegaly Extremities/Musculoskeletal: no cyanosis or clubbing, extremities motor strength 5/5 Neurologic: PERRL, EOMI, accommodation nl, no face palsy, no dysarthria, CN's II-XI intact bilaterally and moves all extremities Psychiatric: A+Ox3, euthymic affect Skin: no rashes, normal color, warm/dry Results & Data Results & Data ([facility]) Vital Signs (Past 12 Hours) Vital Signs Temp Pulse Pulse Resp BP BP Pulse Ox 12/27/21 16:42 36.7 C 72 18 126/72 98 12/27/21 15:02 84 18 124/66 95 12/27/21 12:49 16 12/27/21 12:49 12/27/21 12:49 16 12/27/21 12:45 39.4 C H 107 H 18 118/60 95 O2 Del Method 12/27/21 16:42 Room Air 12/27/21 15:02 Room Air 12/27/21 12:49 12/27/21 12:49 Room Air 12/27/21 12:49 12/27/21 12:45 Room Air Laboratory Results Short CBC 12/27/21 Range/Units 13:00 WBC 15.04 H (4.8-10.8) K/ul Hgb 11.5 L (14.0-18.0) g/dl Hct 32.6 L (40.1-51.0) % Plt Count 471 H (130-400) K/uL BMP 12/27/21 13:00 Sodium 134 L Potassium 3.9 Chloride 100 Carbon Dioxide 27 BUN 13 Creatinine 1.32 Glucose 121 H Calcium 8.1 L Liver Function 12/27/21 Range/Units 13:00 Total Bilirubin 0.4 (0.2-1.0) mg/dl AST 61 H (13-39) U/L ALT 111 H (7-52) U/L Alkaline Phosphatase 65 (34-104) U/L Albumin 3.0 L (3.4-5.0) gm/dl Urine 12/27/21 Range/Units 12:47 Urine Color Yellow Urine Appearance Turbid A (Clear) Urine pH 6.0 (4.5-7.5) Ur Specific [place] 1.014 (1.000-1.030) Urine Protein 2+ H (Negative) Urine Glucose (UA) Negative (Negative) Diagnostic Findings Chest X-Ray 12/27/21 12:49 XR chest 1V portable HISTORY: Sepsis COMPARISON: None. FINDINGS: The cardiac silhouette is borderline enlarged. The lungs are clear. No pleural effusions. No pneumothorax. No evidence for pulmonary edema. IMPRESSION: Borderline cardiomegaly. Otherwise, no acute process within the chest. ACT 112: Negative or not required by law. Electronically signed by: Yovani Webster M.D. 12/27/2021 1:31 PM Abdomen/Pelvis CT 12/27/21 13:36 CT ANGIOGRAM OF THE CHEST; CT SCAN OF THE ABDOMEN AND PELVIS WITH IV CONTRAST CLINICAL HISTORY: Right flank pain. Atypical chest pain. Elevated troponin. Fever. COMPARISON STUDY: Chest x-ray dated 12/27/2021. TECHNIQUE: Following the IV administration of 111 of Optiray 320, CT angiogram of the chest is performed from the upper abdomen to the thoracic inlet utilizing the pulmonary embolus protocol. Images are reviewed in the axial, sagittal, coronal planes. 3-D MIPS images are created and assessed. Subsequently, CT scan of the abdomen and pelvis was performed from the lung bases to the proximal femora. Images are reviewed in the axial, sagittal, and coronal planes. IV contrast was administered without complication. A dose lowering technique was utilized adhering to the principles of ALARA. CT DOSE: 825.28 mGy.cm FINDINGS: CHEST: Thyroid: Imaged portions of the thyroid gland are normal in size and attenuation. Thoracic aorta: There is atherosclerotic calcification of the thoracic aorta, which is normal in caliber and demonstrates standard 3-vessel arch anatomy. No dissection is seen. Pulmonary vasculature: The pulmonary trunk is normal in caliber. There are no filling defects identified in the main, lobar, or proximal segmental pulmonary arteries to indicate pulmonary embolus. Evaluation of the segmental and subsegmental branches is degraded by motion artifact, especially in the left upper lobe. Heart: The heart is mildly enlarged and without pericardial effusion. The coronary arteries are densely calcified. Lungs and pleural spaces: Evaluation of the lung parenchyma is modestly degraded by motion artifact. No airspace consolidation or pleural effusion is identified. There is a 9 mm pulmonary nodule in the superior segment of the left lower lobe seen on image #231. The trachea and central airways are clear. Mediastinum: There is no mediastinal lymphadenopathy. Tashia: Clear. Axillae: There is no axillary lymphadenopathy. Bony thorax: No lytic or blastic lesions are identified. Advanced arthritic change is seen in the shoulders. ABDOMEN AND PELVIS: Liver: The contrast-enhanced liver is enlarged and heterogeneous, measuring 20 cm in craniocaudal length. There is no intrahepatic biliary ductal dilatation. The hepatic veins and portal veins are patent. Gallbladder: Unremarkable. Spleen: The spleen is mildly enlarged, measuring 13.5 cm in length. Pancreas: Unremarkable. Adrenal glands: Unremarkable. Kidneys: The contrast enhanced kidneys appear mildly enlarged and edematous. There is no hydronephrosis. Cortical enhancement is heterogeneous and there is bilateral perinephric stranding. Bilateral nonobstructing renal calculi measuring up to 6 mm. Abdominal vasculature: The abdominal aorta is normal in course and caliber noting mild to moderate atherosclerotic calcification. Stomach and bowel: There is a small to moderate hiatal hernia. No bowel obstruction is seen. Question mild wall thickening of the left colon with surrounding infiltration. The appendix is not visualized. Peritoneum: There is trace free fluid in the pelvis. No intraperitoneal free air is seen. There is a fat-containing umbilical hernia. Lymphadenopathy: None. Pelvic viscera: Evaluation of the pelvis is degraded by's regarding artifact from orthopedic hardware in the left hip. The prostate gland is mildly enlarged and heterogeneous. The bladder is distended. The wall is thickened/trabeculated indicating chronic outlet obstruction. There is a fat-containing left inguinal hernia. Skeletal structures: There is mild lumbosacral spondylosis. No lytic or blastic lesions are seen. Intertrochanteric and intramedullary nails are seen in the left proximal femur. Soft tissues: There is mild body wall edema. IMPRESSION: 1. There is no evidence of pulmonary embolus in the main, lobar, or proximal segmental pulmonary arteries. Evaluation of the peripheral branches is degraded by motion artifact. 2. There is no airspace consolidation typical for pneumonia or pleural effusion. 3. Cardiomegaly with coronary artery calcifications. 4. There is an indeterminate 9 mm left lower lobe pulmonary nodule. This should be followed as per the Fleischner criteria below. 5. Mild hepatosplenomegaly. 6. There is diffuse mesenteric edema and trace free fluid in the pelvis. 7. The kidneys appear mildly enlarged and edematous. There is heterogeneous cortical enhancement and nonspecific bilateral perinephric stranding. Correlate with clinical findings, urinalysis, and renal function studies. 8. Bilateral nephrolithiasis. 9. Question wall thickening with surrounding infiltration involving the left colon/rectum. Correlate clinically for evidence of a nonspecific proctocolitis. 10. Significant bladder distention with evidence of chronic outlet obstruction. Correlate with urinalysis. 11. Mild body wall edema. 12. Additional findings as above. Please refer to below summary of Fleischner criteria recommendations for follow- up of incidental CT nodules (Leonardo Waite, Guidelines for management of small pulmonary nodules detected on CT scans: A statement from the Fleischner Society, Radiology 237: [phone].) SOLID NODULES Solitary nodule size: <6 mm * low risk patients: no follow-up needed * high risk patients: optional CT at 12 months Solitary nodule size: 6-8 mm * low risk patients: follow-up at 6-12 months, then consider further follow-up at 18-24 months * high risk patients: initial follow-up CT at 6-12 months and then at 18-24 months if no change Solitary nodule size: >8 mm * either low or high risk patients - consider follow-up CT at 3 months, and/or CT-PET, and/or biopsy Multiple nodules size: <6 mm * low risk patients: no routine follow-up * high risk patients: optional CT at 12 months Multiple nodules size: 6-8 mm * low risk patients: follow-up at 3-6 months, then consider further follow-up at 18-24 months * high risk patients: follow-up at 3-6 months, then at 18-24 months if no change Multiple nodules size: >8 mm * low risk patients: follow-up at 3-6 months, then consider further follow-up at 18-24 months * high risk patients: follow-up at 3-6 months, then at 18-24 months if no change Note: newly detected indeterminate nodule in persons 35 years of age or older. * low risk patients: minimal or absent history of smoking and/or other known risk factors * high risk patients: history of smoking or of other known risk factors (e.g. first degree relative with lung cancer, or exposure to asbestos, radon, uranium) * if a nodule up to 8 mm is partly solid or is ground glass further follow-up is required after 24 months to exclude possible slow growing adenocarcinoma (LURDES) SUBSOLID NODULES Solitary pure ground-glass nodule * nodule size <6 mm - no CT follow-up required * nodule size >=6 mm - follow-up CT at 6-12 months, then every 2 years until 5 years Solitary part-solid nodule * nodule size <6 mm - no CT follow-up required * nodule size >=6 mm - follow-up CT at 3-6 months. If unchanged, and solid component remains <6 mm, then annual follow-up for 5 years Multiple subsolid nodules * nodule size <6 mm - follow-up CT at 3-6 months, consider further follow-up at 2 and 4 years if stable * nodule size >=6 mm - follow-up CT at 3-6 months, subsequent management based on the most suspicious nodule(s) ACT 112: Negative or not required by law. Electronically signed by: Anish Joseph M.D. 12/27/2021 3:21 PM Chest CTA 12/27/21 14:20 CT ANGIOGRAM OF THE CHEST; CT SCAN OF THE ABDOMEN AND PELVIS WITH IV CONTRAST CLINICAL HISTORY: Right flank pain. Atypical chest pain. Elevated troponin. Fever. COMPARISON STUDY: Chest x-ray dated 12/27/2021. TECHNIQUE: Following the IV administration of 111 of Optiray 320, CT angiogram of the chest is performed from the upper abdomen to the thoracic inlet utilizing the pulmonary embolus protocol. Images are reviewed in the axial, sagittal, coronal planes. 3-D MIPS images are created and assessed. Subsequently, CT scan of the abdomen and pelvis was performed from the lung bases to the proximal femora. Images are reviewed in the axial, sagittal, and coronal planes. IV contrast was administered without complication. A dose lowering technique was utilized adhering to the principles of ALARA. CT DOSE: 825.28 mGy.cm FINDINGS: CHEST: Thyroid: Imaged portions of the thyroid gland are normal in size and attenuation. Thoracic aorta: There is atherosclerotic calcification of the thoracic aorta, which is normal in caliber and demonstrates standard 3-vessel arch anatomy. No dissection is seen. Pulmonary vasculature: The pulmonary trunk is normal in caliber. There are no filling defects identified in the main, lobar, or proximal segmental pulmonary arteries to indicate pulmonary embolus. Evaluation of the segmental and subsegmental branches is degraded by motion artifact, especially in the left upper lobe. Heart: The heart is mildly enlarged and without pericardial effusion. The coronary arteries are densely calcified. Lungs and pleural spaces: Evaluation of the lung parenchyma is modestly degraded by motion artifact. No airspace consolidation or pleural effusion is identified. There is a 9 mm pulmonary nodule in the superior segment of the left lower lobe seen on image #231. The trachea and central airways are clear. Mediastinum: There is no mediastinal lymphadenopathy. Tashia: Clear. Axillae: There is no axillary lymphadenopathy. Bony thorax: No lytic or blastic lesions are identified. Advanced arthritic change is seen in the shoulders. ABDOMEN AND PELVIS: Liver: The contrast-enhanced liver is enlarged and heterogeneous, measuring 20 cm in craniocaudal length. There is no intrahepatic biliary ductal dilatation. The hepatic veins and portal veins are patent. Gallbladder: Unremarkable. Spleen: The spleen is mildly enlarged, measuring 13.5 cm in length. Pancreas: Unremarkable. Adrenal glands: Unremarkable. Kidneys: The contrast enhanced kidneys appear mildly enlarged and edematous. There is no hydronephrosis. Cortical enhancement is heterogeneous and there is bilateral perinephric stranding. Bilateral nonobstructing renal calculi measuring up to 6 mm. Abdominal vasculature: The abdominal aorta is normal in course and caliber noting mild to moderate atherosclerotic calcification. Stomach and bowel: There is a small to moderate hiatal hernia. No bowel obstruction is seen. Question mild wall thickening of the left colon with surrounding infiltration. The appendix is not visualized. Peritoneum: There is trace free fluid in the pelvis. No intraperitoneal free air is seen. There is a fat-containing umbilical hernia. Lymphadenopathy: None. Pelvic viscera: Evaluation of the pelvis is degraded by's regarding artifact from orthopedic hardware in the left hip. The prostate gland is mildly enlarged and heterogeneous. The bladder is distended. The wall is thickened/trabeculated indicating chronic outlet obstruction. There is a fat-containing left inguinal hernia. Skeletal structures: There is mild lumbosacral spondylosis. No lytic or blastic lesions are seen. Intertrochanteric and intramedullary nails are seen in the left proximal femur. Soft tissues: There is mild body wall edema. IMPRESSION: 1. There is no evidence of pulmonary embolus in the main, lobar, or proximal segmental pulmonary arteries. Evaluation of the peripheral branches is degraded by motion artifact. 2. There is no airspace consolidation typical for pneumonia or pleural effusion. 3. Cardiomegaly with coronary artery calcifications. 4. There is an indeterminate 9 mm left lower lobe pulmonary nodule. This should be followed as per the Fleischner criteria below. 5. Mild hepatosplenomegaly. 6. There is diffuse mesenteric edema and trace free fluid in the pelvis. 7. The kidneys appear mildly enlarged and edematous. There is heterogeneous cortical enhancement and nonspecific bilateral perinephric stranding. Correlate with clinical findings, urinalysis, and renal function studies. 8. Bilateral nephrolithiasis. 9. Question wall thickening with surrounding infiltration involving the left colon/rectum. Correlate clinically for evidence of a nonspecific proctocolitis. 10. Significant bladder distention with evidence of chronic outlet obstruction. Correlate with urinalysis. 11. Mild body wall edema. 12. Additional findings as above. Please refer to below summary of Fleischner criteria recommendations for follow- up of incidental CT nodules (Leonardo Waite, Guidelines for management of small pulmonary nodules detected on CT scans: A statement from the Fleischner Society, Radiology 237: [phone].) SOLID NODULES Solitary nodule size: <6 mm * low risk patients: no follow-up needed * high risk patients: optional CT at 12 months Solitary nodule size: 6-8 mm * low risk patients: follow-up at 6-12 months, then consider further follow-up at 18-24 months * high risk patients: initial follow-up CT at 6-12 months and then at 18-24 months if no change Solitary nodule size: >8 mm * either low or high risk patients - consider follow-up CT at 3 months, and/or CT-PET, and/or biopsy Multiple nodules size: <6 mm * low risk patients: no routine follow-up * high risk patients: optional CT at 12 months Multiple nodules size: 6-8 mm * low risk patients: follow-up at 3-6 months, then consider further follow-up at 18-24 months * high risk patients: follow-up at 3-6 months, then at 18-24 months if no change Multiple nodules size: >8 mm * low risk patients: follow-up at 3-6 months, then consider further follow-up at 18-24 months * high risk patients: follow-up at 3-6 months, then at 18-24 months if no change Note: newly detected indeterminate nodule in persons 35 years of age or older. * low risk patients: minimal or absent history of smoking and/or other known risk factors * high risk patients: history of smoking or of other known risk factors (e.g. first degree relative with lung cancer, or exposure to asbestos, radon, uranium) * if a nodule up to 8 mm is partly solid or is ground glass further follow-up is required after 24 months to exclude possible slow growing adenocarcinoma (LURDES) SUBSOLID NODULES Solitary pure ground-glass nodule * nodule size <6 mm - no CT follow-up required * nodule size >=6 mm - follow-up CT at 6-12 months, then every 2 years until 5 years Solitary part-solid nodule * nodule size <6 mm - no CT follow-up required * nodule size >=6 mm - follow-up CT at 3-6 months. If unchanged, and solid component remains <6 mm, then annual follow-up for 5 years Multiple subsolid nodules * nodule size <6 mm - follow-up CT at 3-6 months, consider further follow-up at 2 and 4 years if stable * nodule size >=6 mm - follow-up CT at 3-6 months, subsequent management based on the most suspicious nodule(s) ACT 112: Negative or not required by law. Electronically signed by: Anish Joseph M.D. 12/27/2021 3:21 PM ECG Additional Comments: Sinus tachycardia 105 bpm. T wave abnormality, consider lateral ischemia Supervising Physician Co-Signing Physician Notes I have seen and examined the patient and have discussed the case with the provider above. I agree with the assessment and plan as stated. 56 yo M presented with acute bacterial infection, possible pyelonephritis in setting of accidental Tylenol overdose. He is already feeling much better with the treatment given in the ER. Reports slight persistent flank pain and intermittent hiccups. No issues with tolerating food and no abdominal pain with eating. Some loose stool as above. Physical exam reveals a fit, muscular man in NAD who is sitting in the visitor chair. Cardiac exam is normal with S1/2 heard and no m/g/r. He has no peripheral edema. His lungs are CTAB. There is no CVA tenderness. He has no abdominal tenderness and a very muscular abdomen. Skin is warm and dry. Mucous membranes are moist. Workup today reveals an elevated white blood cell count of 15 K. He is mildly anemic with a hemoglobin 11.5 hematocrit 32.6. Platelet count is slightly elevated at 471. There is a left shift present. INR level is 1.4 in the setting of recent Tylenol overdose. Sodium is 134 other electrolytes are normal. BUN is 13 and creatinine is 1.32 and and he has a muscular frame. Magnesium is 1.5. Troponin is elevated to 58 with no chest pain present and an EKG revealing sinus tachycardia with a rate of [address] changes. There are T wave inversions laterally. Urinalysis reveals turbid appearance, evidence of protein blood leuk esterase and white blood cells in a clean sample with 1+ bacteria. This is consistent with a urinary tract infection. Lyme, COVID, flu and RSV screenings were negative. Imaging including a CTA was unremarkable aside from diffuse mesenteric edema and trace fluid in the pelvis with nonspecific bilateral perinephric stranding. This is consistent with a possible pyelonephritis. There is also wall thickening of the left colon/rectum which is nonspecific. There is also significant bladder distention with evidence of chronic outlet obstruction possibly secondary to BPH. Blood and urine cultures are pending. In the ER he was given 3 L of IV fluid, 1 g of magnesium and was started on Rocephin and N-acetylcysteine. Overall this is a 56-year-old man presenting with fever chills, body aches for the last 2 weeks with evidence of a bacterial infection on lab work and imaging studies possibly consistent with an acute pyelonephritis in the setting of BPH. He is also taking too much Tylenol and is now on N-acetylcysteine for treatment of Tylenol toxicity. Agree with plan to continue this management and trend labs per poison control. Additionally, with the elevated troponin and nonspecific flank pain as well as coronary artery calcifications noted on CT, there is concern for possible ACS. He also has evidence of LVH on EKG and is on losartan therapy for HTN. Will screen with A1C and lipid panel in am; ALBERT risk score is 2 for aspirin use and +troponin. Will hold on anticoagulation at this time but consider adding overnight if he develops chest pain, if there are EKG changes, or if there is a significant rise in troponin velocity. Echo in am to ensure no wall motion abnormality. Cont with antibiotics pending culture results and clinical improvement. Juan Pablo,
[2021-12-27] MEDS ORDERED: ONDANSETRON INJ 2 MG/ML 2 ML VIAL IV PRN (20:41)
[2021-12-27] MEDS ORDERED: ALBUTEROL HFA 8 GM INHALER INH PRN (20:41)
[2021-12-27] MEDS ORDERED: SODIUM CHLORIDE 0.9% 1000ML 1,000 ML IV SCH (20:41)
[2021-12-27] MEDS ORDERED: POLYETHYLENE (MIRALAX) 17 GM PACK PO PRN (20:41)
[2021-12-27] MEDS: MAGNESIUM SULFATE / D5W 1 GM/100 ML BAG IV SCH ×2 (20:54→22:55)
[2021-12-27] MEDS: TAMSULOSIN HCL 0.4 MG CAP PO SCH (21:22)
[2021-12-27] MEDS: ENOXAPARIN INJ 40 MG/0.4 ML SYR SQ SCH (21:22)
[2021-12-27] MEDS ORDERED: IBUPROFEN 200 MG TAB PO PRN (21:35)
[2021-12-28] MEDS: MAGNESIUM SULFATE / D5W 1 GM/100 ML BAG IV SCH (00:49)
[2021-12-28 04:15] LABS: Basophils # (auto) 0.03 K/uL (0-0.2); Basophils % (auto) 0.2 %; Eosinophils # (auto) 0.02 K/uL (0-0.50); Eosinophils % (auto) 0.1 %; Hematocrit (blood only) 30.9 % (40.1-51.0); Hemoglobin 10.7 g/dl (14.0-18.0); Immature Granulocytes # (auto) 0.15 K/uL (0.00-0.02); Immature Granulocytes % (auto) 0.8 %; Lymphocytes # (auto) 0.56 K/uL (1.2-3.4); Mean Corpuscular Hemoglobin 29.9 pg (25.0-34.0); Mean Corpuscular Hgb Conc 34.6 g/dL (32.0-36.0); Mean Corpuscular Volume 86.3 fL (80.0-100.0); Mean Platelet Volume 9.8 fL (9.4-12.4); Monocytes # (auto) 2.21 K/uL (0.24-0.82); Monocytes % (auto) 11.6 %; Neutrophils # (auto) 16.01 K/uL (1.4-6.5); Neutrophils % (auto) 84.3 %; Platelet Count 444 K/uL (130-400); RDW Coefficient of Variation 15.1 % (11.5-14.5); RDW Standard Deviation 48.4 fL (36.4-46.3); Red Blood Count 3.58 M/uL (4.63-6.08); White Blood Count 18.98 K/ul (4.8-10.8)
[2021-12-28 04:35] LABS: Albumin Level 2.7 gm/dl (3.4-5.0); BUN Creatinine Ratio 10.6 (10-20); Bilirubin,Total 0.3 mg/dl (0.2-1.0); Calcium 7.5 mg/dl (8.5-10.1); Chol HDL Ratio 7.9 (0-5); Creatinine Clr Calc Pharmacy 49.9 ml/min; Est GFR (African American) 58.2 ml/min; Est GFR (Non-African American) 50.2 ml/min; Globulin 2.6 gm/dl (2.5-4.0); Magnesium 2.5 mg/dl (1.7-2.4); Potassium 3.6 mmol/L (3.5-5.1); Total Protein 5.3 gm/dl (6.0-8.3)
[2021-12-28 05:11] LABS: INR 1.5 (0.9-1.1); Prothrombin Time 15.8 Seconds (9.0-12.0)
[2021-12-28] MEDS ORDERED: SODIUM CHLORIDE 0.9% 1000ML 1,000 ML IV SCH (05:30)
[2021-12-28 07:11] LABS: Estimated Average Glucose 117 mg/dl; Hemoglobin A1C 5.7 % (4.5-5.6)
[2021-12-28] MEDS: ASPIRIN 81 MG ECTAB PO SCH (09:21)
[2021-12-28] MEDS: MONTELUKAST SODIUM 10 MG TABLET PO SCH (09:21)
[2021-12-28] MEDS ORDERED: IBUPROFEN 200 MG TAB PO PRN (11:15)
[2021-12-28] MEDS ORDERED: CALCIUM CARBONATE 500 MG CHEWABLE TAB PO PRN (11:20)
[2021-12-28] MEDS: IBUPROFEN 600 MG TAB PO PRN (11:45)
[2021-12-28] MEDS: PANTOprazole 40 MG TAB PO SCH (12:29)
--- NOTE | 2021-12-28 13:58 | Hospitalist Progress Note ---
Date of Service December 28, 2021 Assessment & Plan (1) Pyelonephritis: (2) Hypertension: (3) Asthma: (4) Tylenol toxicity: Plan This is a 56yo M with a PMH of asthma, HTN, history of kidney stones who presented with the ED for ongoing fevers and generalized body aches for the past 2 weeks found to have pyelonephritis. Pyelonephritis T 39.4, reporting subjective fever intermittently for 2 weeks. HR 107, WBC 15k, procal 1.[address] abd/pelvis with kidneys appear mildly enlarged and edematous. There is heterogeneous cortical enhancement and nonspecific bilateral perinephric stranding. Significant bladder distention with e/o chronic outlet obstruction UA abnormal with urine culture pending-urine culture is growing staph species await further identification and sensitivity Continue rocephin, starting flomax given likelihood of BPH, continue gentle IV fluids Still has fever up to 38.2 C Started with oral ibuprofen as needed Clinically a little better without any significant symptoms 9 mm pulmonary nodule Will advise repeat CT in 3 months as an outpatient Elevated troponin No chest pain, ECG with sinus tachycardia, 105 bpm, LVH, no overt ST elevation or depression (no baseline ECG), HS troponin 57.7 CT abd/pelvis with cardiomegaly with coronary artery calcifications Trend troponin, monitor on telemetry, consider 2D echo Second troponin went up to 153.1 but the third set came back to 105 without any EKG changes Echo of the heart showed normal LV chamber size with severe concentric LVH, normal LV systolic function with EF 60 to 65%. No segmental LV wall motion abnormalities, grade 2 diastolic dysfunction, no significant valvular pathology and borderline aortic root dilatation Remains asymptomatic Tylenol toxicity Has been taking 4,000-5,000mg tylenol per day for over 1 week in setting of fever. Education on appropriate dosing No abd TTP, INR 1.4, AST 61, ALT 111, albumin 3 Dr. Soliman discussed with poison control who recommended NAC protocol Trend CMP. Avoid additional Tylenol Will check CMP tomorrow morning Complains to have dyspeptic symptoms Will start oral Protonix Hypomagnesemia Initial Mg 1.5. Replaced. Repeat labs in AM Diarrhea Multiple episodes a few daily ago CT abd/pelvis with question wall thickening with surrounding infiltration involving the left colon/rectum. Correlate clinically for evidence of a nonspecific proctocolitis. Consider stool studies if diarrhea persists No more diarrhea Hypertension Has not taken losartan for over 1 week and BP currently normotensive. Hold losartan given possible septic picture Asthma Stable. Continue Singulair, albuterol inh PRN Pulmonary nodule CTA chest with incidental finding of 9 mm left lower lobe pulmonary nodule Per Fleischner criteria recommendations, consider follow up CT at 3 months DVT Ppx: SQ lovenox Code status: FULL PCP: Topher Desai PA-C ([place]) Dispo: Admitted to PCU Admission and Anticipated Discharge Date Admission Date: December 27, 2021 Subjective 12/28/2021 Patient was seen and examined in telemetry unit He has been complaining of fever with body ache 2 to 3 days prior to admission Has been feeling better but he still has a fever Denies any symptoms with voiding and no problem with his bowel habit Review of Systems Review of Systems: All systems reviewed and are unremarkable except as noted below Gastrointestinal: Complains dyspeptic symptoms for a while Physical Exam Physical Exam: Lying in bed without any apparent distress Constitutional: + ill appearing and average body habitus Eyes: PERRL, conjunctivae normal, anicteric sclerae ENMT: external ear and nose normal, oropharynx normal Neck: trachea midline, no thyromegaly Respiratory: no respiratory distress Auscultation: lungs clear to auscultation bilaterally Cardiovascular: Rate/Rhythm: regular rate and regular rhythm; not tachycardic Heart Sounds: normal S1 and normal S2; no murmur Extremities: no edema Gastrointestinal (Abdomen): Inspection/Auscultation: normal bowel sounds; abdomen not distended Percussion/Palpation: abdomen soft; abdomen nontender No tenderness in the renal angles Musculoskeletal: No acute arthritis involving any joint Neurologic: normal touch/pain/proprioception and moves all extremities; no focal motor deficits Psychiatric: A+Ox3, euthymic affect Lymphatic: no cervical or axillary lymphadenopathy Results & Data Results & Data ([facility]) Vital Signs (Past 12 Hours) Vital Signs Temp Pulse Pulse Resp BP Pulse Ox O2 Del Method 12/28/21 11:36 75 12/28/21 10:39 38.2 C H 94 H 20 138/79 99 Room Air 12/28/21 07:26 36.7 C 80 20 146/73 H 98 Room Air 12/28/21 02:37 36.9 C 81 16 127/63 98 Room Air Laboratory Results Short CBC 12/28/21 Range/Units 03:21 WBC 18.98 H (4.8-10.8) K/ul Hgb 10.7 L (14.0-18.0) g/dl Hct 30.9 L (40.1-51.0) % Plt Count 444 H (130-400) K/uL BMP 12/27/21 12/28/21 13:00 03:21 Sodium 134 L 135 L Potassium 3.9 3.6 Chloride 100 99 Carbon Dioxide 27 28 BUN 13 16 Creatinine 1.32 1.51 H Glucose 121 H 137 H Calcium 8.1 L 7.5 L Liver Function 12/27/21 12/28/21 Range/Units 13:00 03:21 Total Bilirubin 0.4 0.3 (0.2-1.0) mg/dl AST 61 H 72 H (13-39) U/L ALT 111 H 109 H (7-52) U/L Alkaline Phosphatase 65 64 (34-104) U/L Albumin 3.0 L 2.7 L (3.4-5.0) gm/dl Medications Administered Current Inpatient Medications Albuterol (Albuterol Hfa 8 Gm Inhaler) 2 puffs INH Q6H PRN PRN Reason: Shortness Of Breath Or Wheezing Stop: 01/26/22 20:40 Aspirin (Aspirin 81 Mg Ectab) 81 mg PO DAILY [facility] Stop: 01/27/22 08:59 Last Admin: 12/28/21 09:21 Dose: 81 mg Calcium Carbonate (Calcium Carbonate 500 Mg Chewable Tab) 500 mg PO Q6H PRN PRN Reason: Indigestion Stop: 01/27/22 11:19 Last Admin: 12/28/21 11:45 Dose: 500 mg Enoxaparin Sodium (Enoxaparin Inj 40 Mg/0.4 Ml Syr) 40 mg SQ Q24H [facility] Stop: 01/26/22 20:59 Last Admin: 12/27/21 21:22 Dose: 40 mg Acetylcysteine 7,750 mg/ (Dextrose) 1,038.75 mls @ 62.5 mls/hr IV ONCE ONE Stop: 12/28/21 14:28 Last Admin: 12/28/21 00:49 Dose: 62.5 mls/hr Ceftriaxone Sodium 2,000 mg/ (Dextrose) 70 mls @ 100 mls/hr IV Q24H [facility]; Protocol Stop: 01/07/22 13:59 Sodium Chloride (Nss 1000ml) 1,000 mls @ 100 mls/hr IV .Q10H [facility] Stop: 12/29/21 05:29 Last Admin: 12/28/21 06:32 Dose: 100 mls/hr Ibuprofen (Ibuprofen 600 Mg Tab) 600 mg PO Q6H PRN PRN Reason: Fever Stop: 01/27/22 11:19 Last Admin: 12/28/21 11:45 Dose: 600 mg Montelukast Sodium (Montelukast Sodium 10 Mg Tablet) 10 mg PO DAILY [facility] Stop: 01/27/22 08:59 Last Admin: 12/28/21 09:21 Dose: 10 mg Ondansetron HCl (Ondansetron Inj 2 Mg/Ml 2 Ml Vial) 4 mg IV Q6H PRN PRN Reason: Nausea Stop: 01/26/22 20:40 Pantoprazole Sodium (Pantoprazole 40 Mg Tab) 40 mg PO QAM [facility] Stop: 01/27/22 11:29 Last Admin: 12/28/21 12:29 Dose: 40 mg Polyethylene Glycol (Polyethylene (Miralax) 17 Gm Pack) 17 gm PO DAILY PRN PRN Reason: Constipation Stop: 01/26/22 20:40 Tamsulosin HCl (Tamsulosin Hcl 0.4 Mg Cap) 0.4 mg PO HS [facility] Stop: 01/26/22 20:59 Last Admin: 12/27/21 21:22 Dose: 0.4 mg (1) Tylenol toxicity Encounter type: initial encounter Injury intent: accidental or unintentional Qualified Code(s): T39.1X1A - Poisoning by 4-Aminophenol derivatives, accidental (unintentional), initial encounter
[2021-12-28 14:26] LABS: INR 1.5 (0.9-1.1); Prothrombin Time 15.2 Seconds (9.0-12.0)
[2021-12-28 14:28] LABS: Albumin Level 2.7 gm/dl (3.4-5.0); Bilirubin,Total 0.2 mg/dl (0.2-1.0); Total Protein 5.3 gm/dl (6.0-8.3)
[2021-12-28] MEDS: cefTRIAXone SODIUM 2,000 MG in DEXTROSE 5% 50 ML IV SCH (14:35)
--- NOTE | 2021-12-28 16:46 | Electrocardiogram Report ---
Test Reason : Blood Pressure : / mmHG Vent. Rate : 074 BPM Atrial Rate : 074 BPM P-R Int : 152 ms QRS Dur : 088 ms QT Int : 388 ms P-R-T Axes : 058 040 223 degrees QTc Int : 430 ms Normal sinus rhythm T wave abnormality, consider inferolateral ischemia Abnormal ECG When compared with ECG of 27-DEC-2021 13:51, T wave inversion now evident in Inferior leads Confirmed by Richmond Garza ([id number]) on 12/28/2021 4:46:21 PM Referred By: REFERRED SELF Confirmed By:Richmond Garza
--- NOTE | 2021-12-28 19:09 | Communication Note ---
Date of Service: December 28, 2021 Notified by nurse that poison control had recommended additional acetylcysteine. I contacted poison control and spoke to nurse there who had stated since patient had elevation of LFTs, it was recommended additional acetylcysteine at 100 mg/kg in D5W 1 L over 16 hours be given. Also recommended repeat LFTs and coags 4 hours prior to the bag being completely infused. Reported will follow-up with nurse here at [facility] to determine when medication was started and to follow-up on labs tomorrow for further recommendations. Order for acetylcysteine and labs placed.
[2021-12-28] MEDS ORDERED: AcetylCYSTEINE 7,900 MG in DEXTROSE 5% 1,000 ML IV ONE (19:15)
[2021-12-28] MEDS: ENOXAPARIN INJ 40 MG/0.4 ML SYR SQ SCH (20:17)
[2021-12-28] MEDS: TAMSULOSIN HCL 0.4 MG CAP PO SCH (20:19)
[2021-12-29] MEDS: IBUPROFEN 600 MG TAB PO PRN ×2 (02:53→19:38)
[2021-12-29] MEDS: PANTOprazole 40 MG TAB PO SCH (08:02)
[2021-12-29] MEDS: ASPIRIN 81 MG ECTAB PO SCH (08:02)
[2021-12-29] MEDS: MONTELUKAST SODIUM 10 MG TABLET PO SCH (08:02)
[2021-12-29 08:26] LABS: Basophils # (auto) 0.02 K/uL (0-0.2); Basophils % (auto) 0.2 %; Eosinophils # (auto) 0.03 K/uL (0-0.50); Eosinophils % (auto) 0.2 %; Hematocrit (blood only) 31.6 % (40.1-51.0); Hemoglobin 10.8 g/dl (14.0-18.0); Immature Granulocytes # (auto) 0.09 K/uL (0.00-0.02); Immature Granulocytes % (auto) 0.7 %; Lymphocytes # (auto) 0.91 K/uL (1.2-3.4); Lymphocytes % (auto) 7.2 %; Mean Corpuscular Hemoglobin 29.8 pg (25.0-34.0); Mean Corpuscular Hgb Conc 34.2 g/dL (32.0-36.0); Mean Corpuscular Volume 87.1 fL (80.0-100.0); Mean Platelet Volume 9.5 fL (9.4-12.4); Monocytes % (auto) 11.1 %; Neutrophils % (auto) 80.6 %; Platelet Count 443 K/uL (130-400); RDW Coefficient of Variation 15.3 % (11.5-14.5); RDW Standard Deviation 49.3 fL (36.4-46.3); Red Blood Count 3.63 M/uL (4.63-6.08); White Blood Count 12.65 K/ul (4.8-10.8)
[2021-12-29 08:41] LABS: INR 1.4 (0.9-1.1); Partial Thromboplastin Ratio 1.2; Partial Thromboplastin Time 31.8 Seconds (21.0-31.0); Prothrombin Time 14.2 Seconds (9.0-12.0)
[2021-12-29 08:54] LABS: Albumin Level 2.7 gm/dl (3.4-5.0); BUN Creatinine Ratio 7.6 (10-20); Bilirubin,Total 0.2 mg/dl (0.2-1.0); Calcium 7.7 mg/dl (8.5-10.1); Creatinine Clr Calc Pharmacy 63.3 ml/min; Est GFR (African American) 77.6 ml/min; Est GFR (Non-African American) 66.9 ml/min; Globulin 2.8 gm/dl (2.5-4.0); Potassium 3.4 mmol/L (3.5-5.1); Total Protein 5.5 gm/dl (6.0-8.3)
[2021-12-29 08:57] LABS: Albumin Level 2.7 gm/dl (3.4-5.0); Bilirubin,Total 0.2 mg/dl (0.2-1.0); Total Protein 5.6 gm/dl (6.0-8.3)
--- NOTE | 2021-12-29 09:53 | Hospitalist Progress Note ---
Date of Service December 29, 2021 Assessment & Plan (1) Pyelonephritis: (2) Hypertension: (3) Asthma: (4) Tylenol toxicity: Plan This is a 56yo M with a PMH of asthma, HTN, history of kidney stones who presented with the ED for ongoing fevers and generalized body aches for the past 2 weeks found to have pyelonephritis. Pyelonephritis Sepsis POA secondary to pyelonephritis T 39.4, reporting subjective fever intermittently for 2 weeks. HR 107, WBC 15k, procal 1.[address] abd/pelvis with kidneys appear mildly enlarged and edematous. There is heterogeneous cortical enhancement and nonspecific bilateral perinephric stranding. Significant bladder distention with e/o chronic outlet obstruction UA abnormal with urine culture pending-urine culture is growing staph species await further identification and sensitivity Continue rocephin, starting flomax given likelihood of BPH, continue gentle IV fluids Still has fever up to 38.2 C Started with oral ibuprofen as needed Clinically a little better without any significant symptoms Blood culture is negative so far and urine culture is growing staph species preliminary Patient remains afebrile and symptomatically better 9 mm pulmonary nodule Will advise repeat CT in 3 months as an outpatient Elevated troponin No chest pain, ECG with sinus tachycardia, 105 bpm, LVH, no overt ST elevation or depression (no baseline ECG), HS troponin 57.7 CT abd/pelvis with cardiomegaly with coronary artery calcifications Trend troponin, monitor on telemetry, consider 2D echo Second troponin went up to 153.1 but the third set came back to 105 without any EKG changes Echo of the heart showed normal LV chamber size with severe concentric LVH, normal LV systolic function with EF 60 to 65%. No segmental LV wall motion abnormalities, grade 2 diastolic dysfunction, no significant valvular pathology and borderline aortic root dilatation Remains asymptomatic Tylenol toxicity Has been taking 4,000-5,000mg tylenol per day for over 1 week in setting of fever. Education on appropriate dosing No abd TTP, INR 1.4, AST 61, ALT 111, albumin 3 Dr. Soliman discussed with poison control who recommended NAC protocol Trend CMP. Avoid additional Tylenol Will check CMP tomorrow morning Complains to have dyspeptic symptoms Will start oral Protonix LFTs have not improved and as per poison center recommendation he will get another dose of acetylcysteine and repeat blood test as advised Hypomagnesemia Initial Mg 1.5. Replaced. Repeat labs in AM Diarrhea Multiple episodes a few daily ago CT abd/pelvis with question wall thickening with surrounding infiltration involving the left colon/rectum. Correlate clinically for evidence of a nonspecific proctocolitis. Consider stool studies if diarrhea persists No more diarrhea Hypertension Has not taken losartan for over 1 week and BP currently normotensive. Hold losartan given possible septic picture Asthma Stable. Continue Singulair, albuterol inh PRN Pulmonary nodule CTA chest with incidental finding of 9 mm left lower lobe pulmonary nodule Per Fleischner criteria recommendations, consider follow up CT at 3 months DVT Ppx: SQ lovenox Code status: FULL PCP: Topher Desai PA-C ([place]) Dispo: Admitted to PCU Admission and Anticipated Discharge Date Admission Date: December 27, 2021 Subjective 12/28/2021 Patient was seen and examined in telemetry unit He has been complaining of fever with body ache 2 to 3 days prior to admission Has been feeling better but he still has a fever Denies any symptoms with voiding and no problem with his bowel habit 12/29/2021 The patient was seen and examined in telemetry unit He has been feeling much better with decreasing epigastric discomfort No more fever and or chills Denies any problem with urine and or bowel habit Review of Systems Review of Systems: All systems reviewed and are unremarkable except as noted below Gastrointestinal: Complains dyspeptic symptoms for a while Physical Exam Physical Exam: Lying in bed without any apparent distress Constitutional: + ill appearing and average body habitus Eyes: PERRL, conjunctivae normal, anicteric sclerae ENMT: external ear and nose normal, oropharynx normal Neck: trachea midline, no thyromegaly Respiratory: no respiratory distress Auscultation: lungs clear to auscultation bilaterally Cardiovascular: Rate/Rhythm: regular rate and regular rhythm; not tachycardic Heart Sounds: normal S1 and normal S2; no murmur Extremities: no edema Gastrointestinal (Abdomen): Inspection/Auscultation: normal bowel sounds; abdomen not distended Percussion/Palpation: abdomen soft; abdomen nontender Neurologic: normal touch/pain/proprioception and moves all extremities; no focal motor deficits Psychiatric: A+Ox3, euthymic affect Lymphatic: no cervical or axillary lymphadenopathy Results & Data Results & Data ([facility]) Vital Signs (Past 12 Hours) Vital Signs Temp Pulse Pulse Resp BP Pulse Ox O2 Del Method 12/29/21 07:00 72 12/29/21 07:00 36.6 C 72 20 124/66 99 Room Air 12/29/21 03:49 36.9 C 12/29/21 02:45 39.5 C H 102 H 18 133/61 98 Room Air 12/29/21 02:39 80 12/29/21 02:12 Room Air 12/28/21 22:37 37.2 C 83 20 142/79 H 99 Room Air Laboratory Results Short CBC 12/29/21 Range/Units 08:05 WBC 12.65 H (4.8-10.8) K/ul Hgb 10.8 L (14.0-18.0) g/dl Hct 31.6 L (40.1-51.0) % Plt Count 443 H (130-400) K/uL BMP 12/29/21 08:05 Sodium 137 Potassium 3.4 L Chloride 101 Carbon Dioxide 29 BUN 9 Creatinine 1.19 D Glucose 117 H Calcium 7.7 L Liver Function 12/28/21 12/29/21 12/29/21 Range/Units 13:52 08:05 08:05 Total Bilirubin 0.2 0.2 0.2 (0.2-1.0) mg/dl Direct Bilirubin 0.0 0.0 (0-0.2) mg/dl AST 64 H 125 H 125 H (13-39) U/L ALT 113 H 174 H 174 H (7-52) U/L Alkaline Phosphatase 61 69 69 (34-104) U/L Albumin 2.7 L 2.7 L 2.7 L (3.4-5.0) gm/dl Medications Administered Current Inpatient Medications Albuterol (Albuterol Hfa 8 Gm Inhaler) 2 puffs INH Q6H PRN PRN Reason: Shortness Of Breath Or Wheezing Stop: 01/26/22 20:40 Aspirin (Aspirin 81 Mg Ectab) 81 mg PO DAILY [facility]AD[facility]IR Stop: 01/27/22 08:59 Last Admin: 12/29/21 08:02 Dose: 81 mg Calcium Carbonate (Calcium Carbonate 500 Mg Chewable Tab) 500 mg PO Q6H PRN PRN Reason: Indigestion Stop: 01/27/22 11:19 Last Admin: 12/28/21 11:45 Dose: 500 mg Enoxaparin Sodium (Enoxaparin Inj 40 Mg/0.4 Ml Syr) 40 mg SQ Q24H [facility] Stop: 01/26/22 20:59 Last Admin: 12/28/21 20:17 Dose: 40 mg Ceftriaxone Sodium 2,000 mg/ (Dextrose) 70 mls @ 100 mls/hr IV Q24H [facility]; Protocol Stop: 01/07/22 13:59 Last Infusion: 12/28/21 15:17 Dose: Infused Acetylcysteine 7,900 mg/ (Dextrose) 1,039.5 mls @ 62.5 mls/hr IV TODAY@1130 [facility]; Protocol Stop: 12/30/21 04:08 Ibuprofen (Ibuprofen 600 Mg Tab) 600 mg PO Q6H PRN PRN Reason: Fever Stop: 01/27/22 11:19 Last Admin: 12/29/21 02:53 Dose: 600 mg Montelukast Sodium (Montelukast Sodium 10 Mg Tablet) 10 mg PO DAILY [facility] Stop: 01/27/22 08:59 Last Admin: 12/29/21 08:02 Dose: 10 mg Ondansetron HCl (Ondansetron Inj 2 Mg/Ml 2 Ml Vial) 4 mg IV Q6H PRN PRN Reason: Nausea Stop: 01/26/22 20:40 Pantoprazole Sodium (Pantoprazole 40 Mg Tab) 40 mg PO QAM [facility] Stop: 01/27/22 11:29 Last Admin: 12/29/21 08:02 Dose: 40 mg Polyethylene Glycol (Polyethylene (Miralax) 17 Gm Pack) 17 gm PO DAILY PRN PRN Reason: Constipation Stop: 01/26/22 20:40 Tamsulosin HCl (Tamsulosin Hcl 0.4 Mg Cap) 0.4 mg PO HS [facility] Stop: 01/26/22 20:59 Last Admin: 12/28/21 20:19 Dose: 0.4 mg (1) Tylenol toxicity Encounter type: initial encounter Injury intent: accidental or unintentional Qualified Code(s): T39.1X1A - Poisoning by 4-Aminophenol derivatives, accidental (unintentional), initial encounter
[2021-12-29] MEDS ORDERED: ACETYLCYSTEINE IV SCH (11:30)
[2021-12-29] MEDS ORDERED: AcetylCYSTEINE 7,900 MG in DEXTROSE 5% 1,000 ML IV SCH (11:30)
[2021-12-29] MEDS ORDERED: DEXTROSE 5% IV SCH (11:30)
[2021-12-29] MEDS ORDERED: POTASSIUM CHLORIDE CRTAB 20 MEQ TABCR PO STA (12:43)
[2021-12-29] MEDS: cefTRIAXone SODIUM 2,000 MG in DEXTROSE 5% 50 ML IV SCH (14:34)
[2021-12-29] MEDS: ENOXAPARIN INJ 40 MG/0.4 ML SYR SQ SCH (19:39)
[2021-12-29] MEDS: TAMSULOSIN HCL 0.4 MG CAP PO SCH (19:39)
[2021-12-30 00:46] LABS: INR 1.3 (0.9-1.1); Partial Thromboplastin Ratio 1.2; Partial Thromboplastin Time 32.5 Seconds (21.0-31.0); Prothrombin Time 13.6 Seconds (9.0-12.0)
[2021-12-30 00:51] LABS: Albumin Level 2.6 gm/dl (3.4-5.0); Bilirubin Direct 0.1 mg/dl (0-0.2); Bilirubin,Total 0.2 mg/dl (0.2-1.0); Total Protein 5.3 gm/dl (6.0-8.3)
[2021-12-30] MEDS ORDERED: AcetylCYSTEINE 7,900 MG in DEXTROSE 5% 1,000 ML IV SCH (05:00)
[2021-12-30] MEDS: NAFCILLIN SODIUM 2,000 MG in DEXTROSE 5% 100 ML IV SCH ×2 (09:34→13:57)
[2021-12-30] MEDS: MONTELUKAST SODIUM 10 MG TABLET PO SCH (09:35)
[2021-12-30] MEDS: ASPIRIN 81 MG ECTAB PO SCH (09:35)
[2021-12-30] MEDS: PANTOprazole 40 MG TAB PO SCH (10:35)
--- NOTE | 2021-12-30 15:51 | Hospitalist Progress Note ---
Date of Service December 30, 2021 Assessment & Plan (1) Pyelonephritis: (2) Hypertension: (3) Asthma: (4) Tylenol toxicity: Plan This is a 56yo M with a PMH of asthma, HTN, history of kidney stones who presented with the ED for ongoing fevers and generalized body aches for the past 2 weeks found to have pyelonephritis. Pyelonephritis Sepsis POA secondary to pyelonephritis T 39.4, reporting subjective fever intermittently for 2 weeks. HR 107, WBC 15k, procal 1.[address] abd/pelvis with kidneys appear mildly enlarged and edematous. There is heterogeneous cortical enhancement and nonspecific bilateral perinephric stranding. Significant bladder distention with e/o chronic outlet obstruction UA abnormal with urine culture pending-urine culture is growing staph species await further identification and sensitivity Continue rocephin, starting flomax given likelihood of BPH, continue gentle IV fluids Still has fever up to 38.2 C Started with oral ibuprofen as needed Clinically a little better without any significant symptoms Blood culture is negative so far and urine culture is growing staph species preliminary Patient remains afebrile and symptomatically better Urine culture is growing coagulase-negative staph Antibiotic has been changed to nafcillin 2 g every 6 hourly ID consult sought 9 mm pulmonary nodule Will advise repeat CT in 3 months as an outpatient Elevated troponin No chest pain, ECG with sinus tachycardia, 105 bpm, LVH, no overt ST elevation or depression (no baseline ECG), HS troponin 57.7 CT abd/pelvis with cardiomegaly with coronary artery calcifications Trend troponin, monitor on telemetry, consider 2D echo Second troponin went up to 153.1 but the third set came back to 105 without any EKG changes Echo of the heart showed normal LV chamber size with severe concentric LVH, normal LV systolic function with EF 60 to 65%. No segmental LV wall motion abnormalities, grade 2 diastolic dysfunction, no significant valvular pathology and borderline aortic root dilatation Remains asymptomatic Tylenol toxicity Has been taking 4,000-5,000mg tylenol per day for over 1 week in setting of fever. Education on appropriate dosing No abd TTP, INR 1.4, AST 61, ALT 111, albumin 3 Dr. Soliman discussed with poison control who recommended NAC protocol Trend CMP. Avoid additional Tylenol Will check CMP tomorrow morning Complains to have dyspeptic symptoms Will start oral Protonix LFTs have not improved and as per poison center recommendation he will get another dose of acetylcysteine and repeat blood test as advised LFTs are getting worse and the another course of acetylcysteine has been started as per instructions from poison control Abnormalities in LFTs may be secondary to use of ceftriaxone which has been discontinued from today Monitor LFTs Hypomagnesemia Initial Mg 1.5. Replaced. Repeat labs in AM Diarrhea Multiple episodes a few daily ago CT abd/pelvis with question wall thickening with surrounding infiltration involving the left colon/rectum. Correlate clinically for evidence of a nonspecific proctocolitis. Consider stool studies if diarrhea persists No more diarrhea Hypertension Has not taken losartan for over 1 week and BP currently normotensive. Hold losartan given possible septic picture Asthma Stable. Continue Singulair, albuterol inh PRN Pulmonary nodule CTA chest with incidental finding of 9 mm left lower lobe pulmonary nodule Per Fleischner criteria recommendations, consider follow up CT at 3 months DVT Ppx: SQ lovenox Code status: FULL PCP: Topher Desai PA-C ([facility]) Dispo: Admitted to PCU Admission and Anticipated Discharge Date Admission Date: December 27, 2021 Subjective 12/28/2021 Patient was seen and examined in telemetry unit He has been complaining of fever with body ache 2 to 3 days prior to admission Has been feeling better but he still has a fever Denies any symptoms with voiding and no problem with his bowel habit 12/29/2021 The patient was seen and examined in telemetry unit He has been feeling much better with decreasing epigastric discomfort No more fever and or chills Denies any problem with urine and or bowel habit 12/30/2021 The patient was seen and examined in telemetry unit He has been feeling much better but LFTs are getting worse Poison center called and another course of acetylcysteine has been started Denies any significant symptoms Review of Systems Review of Systems: All systems reviewed and are unremarkable except as noted below Gastrointestinal: Complains dyspeptic symptoms for a while Physical Exam Physical Exam: Lying in bed without any apparent distress Constitutional: + ill appearing and average body habitus Eyes: PERRL, conjunctivae normal, anicteric sclerae ENMT: external ear and nose normal, oropharynx normal Neck: trachea midline, no thyromegaly Respiratory: no respiratory distress Auscultation: lungs clear to auscultation bilaterally Cardiovascular: Rate/Rhythm: regular rate and regular rhythm; not tachycardic Heart Sounds: normal S1 and normal S2; no murmur Extremities: no edema Gastrointestinal (Abdomen): Inspection/Auscultation: normal bowel sounds; abdomen not distended Percussion/Palpation: abdomen soft; abdomen nontender Neurologic: normal touch/pain/proprioception and moves all extremities; no focal motor deficits Psychiatric: A+Ox3, euthymic affect Lymphatic: no cervical or axillary lymphadenopathy Results & Data Results & Data ([facility]) Vital Signs (Past 12 Hours) Vital Signs Temp Pulse Resp BP Pulse Ox O2 Del Method 12/30/21 12:37 37.5 C 87 18 135/73 98 Room Air 12/30/21 08:08 37.0 C 88 17 136/78 97 Room Air Laboratory Results Liver Function 12/30/21 Range/Units 00:21 Total Bilirubin 0.2 (0.2-1.0) mg/dl Direct Bilirubin 0.1 (0-0.2) mg/dl AST 115 H (13-39) U/L ALT 187 H (7-52) U/L Alkaline Phosphatase 71 (34-104) U/L Albumin 2.6 L (3.4-5.0) gm/dl Medications Administered Current Inpatient Medications Albuterol (Albuterol Hfa 8 Gm Inhaler) 2 puffs INH Q6H PRN PRN Reason: Shortness Of Breath Or Wheezing Stop: 01/26/22 20:40 Aspirin (Aspirin 81 Mg Ectab) 81 mg PO DAILY ON LICENSE OF [facility] Stop: 01/27/22 08:59 Last Admin: 12/30/21 09:35 Dose: 81 mg Calcium Carbonate (Calcium Carbonate 500 Mg Chewable Tab) 500 mg PO Q6H PRN PRN Reason: Indigestion Stop: 01/27/22 11:19 Last Admin: 12/28/21 11:45 Dose: 500 mg Enoxaparin Sodium (Enoxaparin Inj 40 Mg/0.4 Ml Syr) 40 mg SQ Q24H VLADIMIR Stop: 01/26/22 20:59 Last Admin: 12/29/21 19:39 Dose: 40 mg Acetylcysteine 7,900 mg/ (Dextrose) 1,039.5 mls @ 62.5 mls/hr IV TODAY@0500 VLADIMIR; Protocol Stop: 12/30/21 21:38 Last Admin: 12/30/21 05:05 Dose: 62.5 mls/hr Nafcillin Sodium 2,000 mg/ (Dextrose) 110 mls @ 100 mls/hr IV Q6H VLADIMIR Stop: 01/09/22 07:59 Last Infusion: 12/30/21 15:03 Dose: Infused Ibuprofen (Ibuprofen 600 Mg Tab) 600 mg PO Q6H PRN PRN Reason: Fever Stop: 01/27/22 11:19 Last Admin: 12/29/21 19:38 Dose: 600 mg Montelukast Sodium (Montelukast Sodium 10 Mg Tablet) 10 mg PO DAILY VLADIMIR Stop: 01/27/22 08:59 Last Admin: 12/30/21 09:35 Dose: 10 mg Ondansetron HCl (Ondansetron Inj 2 Mg/Ml 2 Ml Vial) 4 mg IV Q6H PRN PRN Reason: Nausea Stop: 01/26/22 20:40 Pantoprazole Sodium (Pantoprazole 40 Mg Tab) 40 mg PO QAM ON LICENSE OF [facility] Stop: 01/27/22 11:29 Last Admin: 12/30/21 10:35 Dose: 40 mg Polyethylene Glycol (Polyethylene (Miralax) 17 Gm Pack) 17 gm PO DAILY PRN PRN Reason: Constipation Stop: 01/26/22 20:40 Tamsulosin HCl (Tamsulosin Hcl 0.4 Mg Cap) 0.4 mg PO HS ON LICENSE OF [facility] Stop: 01/26/22 20:59 Last Admin: 12/29/21 19:39 Dose: 0.4 mg (1) Tylenol toxicity Encounter type: initial encounter Injury intent: accidental or unintentional Qualified Code(s): T39.1X1A - Poisoning by 4-Aminophenol derivatives, accidental (unintentional), initial encounter
[2021-12-30 17:32] LABS: Albumin Level 2.8 gm/dl (3.4-5.0); Bilirubin Direct 0.1 mg/dl (0-0.2); Bilirubin,Total 0.3 mg/dl (0.2-1.0); Total Protein 5.7 gm/dl (6.0-8.3)
[2021-12-30 18:03] LABS: INR 1.3 (0.9-1.1); Partial Thromboplastin Ratio 1.1; Partial Thromboplastin Time 30.9 Seconds (21.0-31.0); Prothrombin Time 13.3 Seconds (9.0-12.0)
[2021-12-30] MEDS: TAMSULOSIN HCL 0.4 MG CAP PO SCH (19:51)
[2021-12-30] MEDS: ENOXAPARIN INJ 40 MG/0.4 ML SYR SQ SCH (19:51)
[2021-12-31 07:04] LABS: Basophils # (auto) 0.03 K/uL (0-0.2); Basophils % (auto) 0.3 %; Eosinophils # (auto) 0.08 K/uL (0-0.50); Eosinophils % (auto) 0.8 %; Hematocrit (blood only) 29.4 % (40.1-51.0); Immature Granulocytes # (auto) 0.11 K/uL (0.00-0.02); Immature Granulocytes % (auto) 1.1 %; Lymphocytes # (auto) 0.81 K/uL (1.2-3.4); Lymphocytes % (auto) 8.1 %; Mean Corpuscular Hemoglobin 28.9 pg (25.0-34.0); Mean Platelet Volume 9.3 fL (9.4-12.4); Monocytes # (auto) 1.06 K/uL (0.24-0.82); Monocytes % (auto) 10.5 %; Neutrophils # (auto) 7.96 K/uL (1.4-6.5); Neutrophils % (auto) 79.2 %; Platelet Count 506 K/uL (130-400); RDW Coefficient of Variation 15.4 % (11.5-14.5); RDW Standard Deviation 47.4 fL (36.4-46.3); Red Blood Count 3.46 M/uL (4.63-6.08); White Blood Count 10.05 K/ul (4.8-10.8)
[2021-12-31 07:23] LABS: Albumin Level 2.8 gm/dl (3.4-5.0); BUN Creatinine Ratio 8.2 (10-20); Bilirubin,Total 0.3 mg/dl (0.2-1.0); Creatinine Clr Calc Pharmacy 61.7 ml/min; Est GFR (African American) 75.3 ml/min; Est GFR (Non-African American) 64.9 ml/min; Globulin 2.8 gm/dl (2.5-4.0); INR 1.2 (0.9-1.1); Potassium 3.5 mmol/L (3.5-5.1); Prothrombin Time 12.4 Seconds (9.0-12.0); Total Protein 5.6 gm/dl (6.0-8.3)
[2021-12-31] MEDS: ASPIRIN 81 MG ECTAB PO SCH (07:32)
[2021-12-31] MEDS: PANTOprazole 40 MG TAB PO SCH (07:33)
[2021-12-31] MEDS: MONTELUKAST SODIUM 10 MG TABLET PO SCH (07:33)
--- NOTE | 2021-12-31 09:53 | Hospitalist Progress Note ---
Date of Service December 31, 2021 Assessment & Plan (1) Pyelonephritis: (2) Hypertension: (3) Asthma: (4) Tylenol toxicity: Plan This is a 56yo M with a PMH of asthma, HTN, history of kidney stones who presented with the ED for ongoing fevers and generalized body aches for the past 2 weeks found to have pyelonephritis. Pyelonephritis Sepsis POA secondary to pyelonephritis T 39.4, reporting subjective fever intermittently for 2 weeks. HR 107, WBC 15k, procal 1.[address] abd/pelvis with kidneys appear mildly enlarged and edematous. There is heterogeneous cortical enhancement and nonspecific bilateral perinephric stranding. Significant bladder distention with e/o chronic outlet obstruction UA abnormal with urine culture pending-urine culture is growing staph species await further identification and sensitivity Continue rocephin, starting flomax given likelihood of BPH, continue gentle IV fluids Still has fever up to 38.2 C Started with oral ibuprofen as needed Clinically a little better without any significant symptoms Blood culture is negative so far and urine culture is growing staph species preliminary Patient remains afebrile and symptomatically better Urine culture is growing coagulase-negative staph Antibiotic has been changed to nafcillin 2 g every 6 hourly ID consult sought-appreciate ID input and recommendation He does not have pyelonephritis and UTI does not need to be treated further For the abnormal LFTs other test were sent-so far the smears for Anaplasma and babesiosis have been negative, still awaiting hepatitis panel and other viral studies He wants to go home today and will be discharged home this afternoon 9 mm pulmonary nodule Will advise repeat CT in 3 months as an outpatient We will need to have a follow-up CT scan within 3 months Elevated troponin No chest pain, ECG with sinus tachycardia, 105 bpm, LVH, no overt ST elevation or depression (no baseline ECG), HS troponin 57.7 CT abd/pelvis with cardiomegaly with coronary artery calcifications Trend troponin, monitor on telemetry, consider 2D echo Second troponin went up to 153.1 but the third set came back to 105 without any EKG changes Echo of the heart showed normal LV chamber size with severe concentric LVH, normal LV systolic function with EF 60 to 65%. No segmental LV wall motion abnormalities, grade 2 diastolic dysfunction, no significant valvular pathology and borderline aortic root dilatation Remains asymptomatic Tylenol toxicity Has been taking 4,000-5,000mg tylenol per day for over 1 week in setting of fever. Education on appropriate dosing No abd TTP, INR 1.4, AST 61, ALT 111, albumin 3 Dr. Soliman discussed with poison control who recommended NAC protocol Trend CMP. Avoid additional Tylenol Will check CMP tomorrow morning Complains to have dyspeptic symptoms Will start oral Protonix LFTs have not improved and as per poison center recommendation he will get another dose of acetylcysteine and repeat blood test as advised LFTs are getting worse and the another course of acetylcysteine has been started as per instructions from poison control Abnormalities in LFTs may be secondary to use of ceftriaxone which has been discontinued from today Monitor LFTs-LFTs has been improving and the INR is almost normalized Abnormal LFTs could be secondary to use of ceftriaxone before Will advise the primary care physician to monitor LFTs Hypomagnesemia Initial Mg 1.5. Replaced. Repeat labs in AM Diarrhea Multiple episodes a few daily ago CT abd/pelvis with question wall thickening with surrounding infiltration involving the left colon/rectum. Correlate clinically for evidence of a nonspecific proctocolitis. Consider stool studies if diarrhea persists No more diarrhea Hypertension Has not taken losartan for over 1 week and BP currently normotensive. Hold losartan given possible septic picture Asthma Stable. Continue Singulair, albuterol inh PRN Pulmonary nodule CTA chest with incidental finding of 9 mm left lower lobe pulmonary nodule Per Fleischner criteria recommendations, consider follow up CT at 3 months DVT Ppx: SQ lovenox Code status: FULL PCP: Topher Desai PA-C ([place]) Dispo: Admitted to PCU Discharged home this afternoon Admission and Anticipated Discharge Date Admission Date: December 27, 2021 Subjective 12/28/2021 Patient was seen and examined in telemetry unit He has been complaining of fever with body ache 2 to 3 days prior to admission Has been feeling better but he still has a fever Denies any symptoms with voiding and no problem with his bowel habit 12/29/2021 The patient was seen and examined in telemetry unit He has been feeling much better with decreasing epigastric discomfort No more fever and or chills Denies any problem with urine and or bowel habit 12/30/2021 The patient was seen and examined in telemetry unit He has been feeling much better but LFTs are getting worse Poison center called and another course of acetylcysteine has been started Denies any significant symptoms 12/31/2021 The patient was seen and examined in telemetry unit He has been feeling much better and denies any symptoms No fever and no chills ,no abdominal pain, nausea and or vomiting Review of Systems Review of Systems: All systems reviewed and are unremarkable except as noted below Gastrointestinal: Complains dyspeptic symptoms for a while Physical Exam Physical Exam: Lying in bed without any apparent distress Constitutional: + ill appearing and average body habitus Eyes: PERRL, conjunctivae normal, anicteric sclerae ENMT: external ear and nose normal, oropharynx normal Neck: trachea midline, no thyromegaly Respiratory: no respiratory distress Auscultation: lungs clear to auscultation bilaterally Cardiovascular: Rate/Rhythm: regular rate and regular rhythm; not tachycardic Heart Sounds: normal S1 and normal S2; no murmur Extremities: no edema Gastrointestinal (Abdomen): Inspection/Auscultation: normal bowel sounds; abdomen not distended Percussion/Palpation: abdomen soft; abdomen nontender Neurologic: normal touch/pain/proprioception and moves all extremities; no focal motor deficits Psychiatric: A+Ox3, euthymic affect Lymphatic: no cervical or axillary lymphadenopathy Results & Data Results & Data ([facility]) Vital Signs (Past 12 Hours) Vital Signs Temp Pulse Pulse Resp BP Pulse Ox O2 Del Method 12/31/21 07:54 36.8 C 81 20 134/76 97 Room Air 12/31/21 07:21 88 12/31/21 02:37 37.4 C 86 22 146/70 H 97 Room Air 12/30/21 22:15 76 12/30/21 23:09 36.4 C L 92 H 14 147/80 H 95 Room Air Laboratory Results Short CBC 12/31/21 Range/Units 06:22 WBC 10.05 (4.8-10.8) K/ul Hgb 10.0 L (14.0-18.0) g/dl Hct 29.4 L (40.1-51.0) % Plt Count 506 H (130-400) K/uL BMP 12/31/21 06:22 Sodium 140 Potassium 3.5 Chloride 105 Carbon Dioxide 27 BUN 10 Creatinine 1.22 Glucose 101 H Calcium 8.0 L Liver Function 12/30/21 12/31/21 Range/Units 16:29 06:22 Total Bilirubin 0.3 0.3 (0.2-1.0) mg/dl Direct Bilirubin 0.1 (0-0.2) mg/dl AST 70 H 48 H (13-39) U/L ALT 182 H 157 H (7-52) U/L Alkaline Phosphatase 77 73 (34-104) U/L Albumin 2.8 L 2.8 L (3.4-5.0) gm/dl Medications Administered Current Inpatient Medications Albuterol (Albuterol Hfa 8 Gm Inhaler) 2 puffs INH Q6H PRN PRN Reason: Shortness Of Breath Or Wheezing Stop: 01/26/22 20:40 Aspirin (Aspirin 81 Mg Ectab) 81 mg PO DAILY VLADIMIR Stop: 01/27/22 08:59 Last Admin: 12/31/21 07:32 Dose: 81 mg Calcium Carbonate (Calcium Carbonate 500 Mg Chewable Tab) 500 mg PO Q6H PRN PRN Reason: Indigestion Stop: 01/27/22 11:19 Last Admin: 12/28/21 11:45 Dose: 500 mg Enoxaparin Sodium (Enoxaparin Inj 40 Mg/0.4 Ml Syr) 40 mg SQ Q24H VLADIMIR Stop: 01/26/22 20:59 Last Admin: 12/30/21 19:51 Dose: 40 mg Ibuprofen (Ibuprofen 600 Mg Tab) 600 mg PO Q6H PRN PRN Reason: Fever Stop: 01/27/22 11:19 Last Admin: 12/29/21 19:38 Dose: 600 mg Montelukast Sodium (Montelukast Sodium 10 Mg Tablet) 10 mg PO DAILY VLADIMIR Stop: 01/27/22 08:59 Last Admin: 12/31/21 07:33 Dose: 10 mg Ondansetron HCl (Ondansetron Inj 2 Mg/Ml 2 Ml Vial) 4 mg IV Q6H PRN PRN Reason: Nausea Stop: 01/26/22 20:40 Pantoprazole Sodium (Pantoprazole 40 Mg Tab) 40 mg PO QAM VLADIMIR Stop: 01/27/22 11:29 Last Admin: 12/31/21 07:33 Dose: 40 mg Polyethylene Glycol (Polyethylene (Miralax) 17 Gm Pack) 17 gm PO DAILY PRN PRN Reason: Constipation Stop: 01/26/22 20:40 Tamsulosin HCl (Tamsulosin Hcl 0.4 Mg Cap) 0.4 mg PO HS VLADIMIR Stop: 01/26/22 20:59 Last Admin: 12/30/21 19:51 Dose: 0.4 mg (1) Tylenol toxicity Encounter type: initial encounter Injury intent: accidental or unintentional Qualified Code(s): T39.1X1A - Poisoning by 4-Aminophenol derivatives, accidental (unintentional), initial encounter
[2021-12-31 11:57] LABS: HBSAG NON-REACTIVE (NON-REACTIVE); Hepatitis A Antibody IgM NON-REACTIVE (NON-REACTIVE); Hepatitis B Core Antibody IgM NON-REACTIVE (NON-REACTIVE)
--- NOTE | 2022-01-01 07:32 | Discharge Summary ---
Date of Service January 01, 2022 Admission HPI Per Admitting Provider This is a 56yo M with a PMH of asthma, HTN, history of kidney stones who presented with the ED for ongoing fevers and generalized body aches for the past 2 weeks. Has had difficulty getting with primary care doctor and due to worsening urinary symptoms presented to the ER today. Reports weak urinary stream and frequent urination with incomplete emptying but no dysuria or hematuria. Intermittent right flank pain but none today. Dull headache and body aches as well. Has been taking 1000 mg of Tylenol 4-5 times per day for over a week. No chest pain, shortness of breath, nausea, vomiting, abdominal pain, back pain. Had a few bouts of diarrhea days ago that have since resolved. Has not taken losartan in over 1 week due to running out. Admission Exam Per Admitting Provider Physical Exam: General Appearance:WD/WN, vitals as above, NAD, sitting in bedside chair, pleasant, conversing easily Head: normocephalic, atraumatic Eyes:normal inspection, PERRL, conjunctivae normal, anicteric sclerae ENT: external ear and nose normal, mucous membranes of oropharynx dry Neck: normal visual inspection, trachea midline, no thyromegaly Respiratory:normal respiratory effort, lungs clear to auscultation, no wheeze, rales, rhonchi. No accessory muscle use Cardiovascular: regular rate, rhythm, no murmur, normal peripheral pulses, no BLE edema. Vessels: no JVD Chest: normal inspection of chest Abdomen/GI: normal bowel sounds, soft, nontender, no hepatosplenomegaly Extremities/Musculoskeletal: no cyanosis or clubbing, extremities motor strength 5/5 Neurologic: PERRL, EOMI, accommodation nl, no face palsy, no dysarthria, CN's II-XI intact bilaterally and moves all extremities Psychiatric:A+Ox3, euthymic affect Skin: no rashes, normal color, warm/dry Principal Diagnosis UTI, Tylenol toxicity, elevated LFTs Discharge Exam Lying in bed without any apparent distress Constitutional + ill appearing and average body habitus Eyes PERRL, conjunctivae normal, anicteric sclerae ENMT external ear and nose normal, oropharynx normal Neck trachea midline, no thyromegaly Respiratory no respiratory distress Auscultation: lungs clear to auscultation bilaterally Cardiovascular Rate/Rhythm: regular rate and regular rhythm; not tachycardic Heart Sounds: normal S1 and normal S2; no murmur Extremities: no edema Gastrointestinal (Abdomen) Inspection/Auscultation: normal bowel sounds; abdomen not distended Percussion/Palpation: abdomen soft; abdomen nontender Neurologic normal touch/pain/proprioception and moves all extremities; no focal motor deficits Psychiatric A+Ox3, euthymic affect Lymphatic no cervical or axillary lymphadenopathy Discharge Data Allergies Allergy/AdvReac Type Severity Reaction Status Date / Time pollen extracts Allergy Intermediate CAN Verified 12/27/21 15:59 TRIGGER ASTHMA ATTACK Consultations 12/27/21 16:39 ED Decision to Admit Stat 12/30/21 07:53 Consult Infectious Diseases Routine Ordered Studies 12/27/21 13:36 CT abd pelvis IV con only Stat 12/27/21 14:20 CT angio chest PE protocol Stat Hospital Course (1) Pyelonephritis: (2) Hypertension: (3) Asthma: (4) Tylenol toxicity: Plan This is a 56yo M with a PMH of asthma, HTN, history of kidney stones who presented with the ED for ongoing fevers and generalized body aches for the past 2 weeks found to have pyelonephritis. Pyelonephritis Sepsis POA secondary to pyelonephritis T 39.4, reporting subjective fever intermittently for 2 weeks. HR 107, WBC 15k, procal 1.[address] abd/pelvis with kidneys appear mildly enlarged and edematous. There is heterogeneous cortical enhancement and nonspecific bilateral perinephric stranding. Significant bladder distention with e/o chronic outlet obstruction UA abnormal with urine culture pending-urine culture is growing staph species await further identification and sensitivity Continue rocephin, starting flomax given likelihood of BPH, continue gentle IV fluids Still has fever up to 38.2 C Started with oral ibuprofen as needed Clinically a little better without any significant symptoms Blood culture is negative so far and urine culture is growing staph species preliminary Patient remains afebrile and symptomatically better Urine culture is growing coagulase-negative staph Antibiotic has been changed to nafcillin 2 g every 6 hourly ID consult sought-appreciate ID input and recommendation He does not have pyelonephritis and UTI does not need to be treated further For the abnormal LFTs other test were sent-so far the smears for Anaplasma and babesiosis have been negative, still awaiting hepatitis panel and other viral studies He wants to go home today and will be discharged home this afternoon 9 mm pulmonary nodule Will advise repeat CT in 3 months as an outpatient We will need to have a follow-up CT scan within 3 months Elevated troponin No chest pain, ECG with sinus tachycardia, 105 bpm, LVH, no overt ST elevation or depression (no baseline ECG), HS troponin 57.7 CT abd/pelvis with cardiomegaly with coronary artery calcifications Trend troponin, monitor on telemetry, consider 2D echo Second troponin went up to 153.1 but the third set came back to 105 without any EKG changes Echo of the heart showed normal LV chamber size with severe concentric LVH, normal LV systolic function with EF 60 to 65%. No segmental LV wall motion abnormalities, grade 2 diastolic dysfunction, no significant valvular pathology and borderline aortic root dilatation Remains asymptomatic Tylenol toxicity Has been taking 4,000-5,000mg tylenol per day for over 1 week in setting of fever. Education on appropriate dosing No abd TTP, INR 1.4, AST 61, ALT 111, albumin 3 Dr. Soliman discussed with poison control who recommended NAC protocol Trend CMP. Avoid additional Tylenol Will check CMP tomorrow morning Complains to have dyspeptic symptoms Will start oral Protonix LFTs have not improved and as per poison center recommendation he will get another dose of acetylcysteine and repeat blood test as advised LFTs are getting worse and the another course of acetylcysteine has been started as per instructions from poison control Abnormalities in LFTs may be secondary to use of ceftriaxone which has been discontinued from today Monitor LFTs-LFTs has been improving and the INR is almost normalized Abnormal LFTs could be secondary to use of ceftriaxone before Will advise the primary care physician to monitor LFTs Hypomagnesemia Initial Mg 1.5. Replaced. Repeat labs in AM Diarrhea Multiple episodes a few daily ago CT abd/pelvis with question wall thickening with surrounding infiltration involving the left colon/rectum. Correlate clinically for evidence of a nonspecific proctocolitis. Consider stool studies if diarrhea persists No more diarrhea Hypertension Has not taken losartan for over 1 week and BP currently normotensive. Hold losartan given possible septic picture Asthma Stable. Continue Singulair, albuterol inh PRN Pulmonary nodule CTA chest with incidental finding of 9 mm left lower lobe pulmonary nodule Per Fleischner criteria recommendations, consider follow up CT at 3 months DVT Ppx: SQ lovenox Code status: FULL PCP: Topher Desai PA-C ([place]) Dispo: Admitted to PCU Discharged home this afternoon Total Time Total Time Spent Total Time Spent (In Minutes): 35 minutes Discharge Plan Discharge Items Patient Disposition: Home - Self-Care Reason For Visit: PYELONEPHRITIS, POSSIBLE TYLENOL TOXICITY Discharge Diagnosis: UTI, Tylenol toxicity, elevated LFTs Condition on Discharge: Good Activity: Resume your previous activity Non-emergency contact: Primary Care Provider Call non-emergency contact if: you have any medication questions and your symptoms worsen Follow-up/Referrals: Topher Desai D.O. [Primary Care Provider] - (Please make an appointment with your primary care physician within 7 days) Diet: Regular Addtl Attending Provider Instructions: Please have your liver function checked within 7 days Keep appointment with your healthcare providers Drink more fluid Pending Studies at Discharge: No Stand-Alone Forms: [employer], Opioid Pain Management, Work/School Release, Smoking Cessation Medications and DC Order Prescriptions: New tamsulosin 0.4 mg Capsule 0.4 mg PO HS 30 Days Qty: 30 0RF pantoprazole 40 mg Tablet,Delayed Release (Dr/Ec) 40 mg PO QAM 30 Days Qty: 30 0RF Continued aspirin 81 mg Tablet,Delayed Release (Dr/Ec) 81 mg PO DAILY montelukast 10 mg tablet 10 mg PO DAILY albuterol sulfate 90 mcg/actuation HFA aerosol inhaler 2 puff INHALATION DIRECTED PRN (Reason: Shortness Of Breath Or Wheezing) losartan 100 mg tablet 100 mg PO DAILY Discharge Orders: Discharge Order (Routine); Ordered 12/31/21 Ordered By: Raciel Hernandez Admission Data Admit Date/Time: 12/27/21 17:33 Attending Provider: Raciel Hernandez Admit Provider: Katy Almeida Primary Care Provider: Topher Desai Other Providers: Katy Almeida ; Jules Cruz ; Nicole Johnson ; Al Tavera I. ; Ryan Case II ; Carolina Humphrey ; Omero Dent ; Will Saleh ; Orlando Rider Other Interventions: Discharge Summary Assessment (RN) Last Done: 12/31/21 11:50
[2022-01-03 17:16] LABS: Babesia microti DNA Not Detected (Not Detected); CMV IgM Antibody <30.00 AU/mL
== END 2021-12-31 12:50 | disposition home or self-care (01) | DRG 872 ==
LOC: ED 12:39 → 2E 17:33 → SUATTDRO 17:33 → 2E 18:48